=== PATIENT | male | born 1960 | race Caucasian/White ===

== ENCOUNTER 2019-04-06 09:39 | Outpatient (CLI) | payer BC, SELFPAY ==
[2019-04-06 12:57] LABS: HCT 40.8 % (40.0-50.0); HGB 13.5 g/dL (13.5-17.5); Mean Corp. HGB Concentration 33.1 g/dL (32.0-36.0); Mean Corpuscular Hemoglobin 28.8 pg (27.0-33.0); Mean Platelet Volume 11.4 fL (8.0-11.0); Platelet Count 211 x1000/uL (130-400); RBC 4.69 m/cumm (4.50-6.00); RBC Distribution Width 15.2 % (11.8-14.1); White Blood Cell Count 8.55 k/cumm (4.4-10.8)
[2019-04-06 13:47] LABS: ALT 35 U/L (12-78); AST 21 U/L (15-37); Alkaline Phosphatase 76 U/L (46-116); Anion Gap 10.4 mmol/L (3-11); BUN 10 mg/dL (7-18); Bilirubin, Total 0.3 mg/dL (0.2-1.0); CO2 26.6 mmol/L (21.0-32.0); CREATININE 0.79 mg/dL (0.70-1.30); Calcium 8.6 mg/dL (8.5-10.1); Chloride 98 mmol/L (98-107); Glucose 101 mg/dL (70-100); Potassium 4.1 mmol/L (3.5-5.1); Sodium 135 mmol/L (136-145); TSH (W/Ref FT4) 1.57 uIU/mL (0.36-3.74); Total Protein 7.1 g/dL (6.4-8.2); Vitamin B12 570 pg/mL (193-986)
[2019-04-06 14:15] LABS: Hemoglobin A1C 6.4 % (4.5-6.2)
== END 2019-04-06 09:59 ==
PROVIDERS: PCP Family Medicine; Visit Provider Family Medicine
DX: G56.00 Carpal tunnel syndrome, unspecified upper limb (principal); G62.9 Polyneuropathy, unspecified
CPT/HCPCS: 36415; 80053; 85027; 82607; 83036; 84443

== ENCOUNTER 2019-06-20 09:19 | Day surgery (SDC) | payer BC, SELFPAY ==
[2019-06-20 09:38] VITALS: BP 146/93; PULSE 51; RESP 16; TEMP 36.1; O2SAT 96
[2019-06-20] MEDS: ceFAZolin 3,000 MG in Normal Saline 100 ML 200 MG IVPB (10:12)
[2019-06-20] MEDS: Lactated Ringers 1,000 ML 80 ML IV (10:14)
--- NOTE | 2019-06-20 10:21 | PDOC.DSDIS_ITS ---
Discharge Plan Disposition Patient Disposition: HOME Condition: Good Discharge Details Reason For Visit: (R) ECTR Attending Provider: Amari Chi Primary Care Provider: Kayleigh Guzman Home Meds and New Rx's Prescriptions: New hydrocodone-acetaminophen 5-325 mg tablet 1 tab PO Q6H PRN (Reason: pain) Qty: 2 RF: 0 Continued methylphenidate HCl 10 mg tablet 10 mg PO TID MDD 3 Qty: 90 RF: 0 metoprolol succinate 100 mg tablet extended release 24 hr 100 mg PO DAILY Qty: 90 RF: 5 cholecalciferol (vitamin D3) 1,000 UNIT capsule 1,000 unit PO occasionally RF: 0 calcium carbonate-vitamin D3 [Caltrate with Vitamin D3] 1 EACH tablet 1 ea PO occasionally RF: 0 multivitamin 1 EACH tablet 1 ea PO occasionally RF: 0 acetaminophen [Tylenol Extra Strength] 500 MG tablet 2 tab PO PRN RF: 0 ibuprofen 800 MG tablet 800 mg PO TID PRN Qty: 90 RF: 0 sertraline 100 mg tablet 200 mg PO DAILY Qty: 180 RF: 4 oxcarbazepine [Trileptal] 600 mg tablet 600 mg PO BID Qty: 180 RF: 6 gabapentin 300 mg capsule 300 mg PO TID Qty: 270 RF: 12 mirtazapine 30 mg tablet 30 mg PO DAILY Qty: 90 RF: 11 amlodipine [Norvasc] 5 mg tablet 5 mg PO DAILY Qty: 90 RF: 12 lisinopril-hydrochlorothiazide 20-25 mg tablet 1 tab PO DAILY Qty: 90 RF: 12 Discharge Instructions Stand Alone Forms: Arti Bae Tunnel Release Referrals: Amari Chi MD [ [facility] STAFF PHYSICIAN] - Activity:: Activity as Tolerated Remove Dressings/Wound Care:: 48 hours Shower/Bathe:: 48 hours Diet:: As Tolerated Discharge Orders Discharge Orders: Discharge Order (Routine); Ordered 06/20/19 Ordered By: Oleg Hewitt DS: Diagnosis Discharge Diagnosis (1) Carpal tunnel syndrome, right: Status: Acute
[2019-06-20] MEDS: Sodium Bicarbonate 50 MEQ/50 ML VIAL (10:22)
[2019-06-20] MEDS: Lidocaine 1% Pres-Free 5 ML VIAL (10:22)
[2019-06-20 11:20] VITALS: BP 126/76; PULSE 57; RESP 18; TEMP 36; O2SAT 96
--- NOTE | 2019-06-20 13:53 | W.PM.OP ---
Date of service: 06/20/19 Time of Service: 10:53 Operative Note Operative Note DATE OF PROCEDURE: 06/20/19 PRE-OP DIAGNOSIS: Right Carpal Tunnel Syndrome POST-OP DIAGNOSIS: other (Right carpal tunnel syndrome and lipoma) PROCEDURE: Right Endoscopic Carpal Tunnel Release SURGEON: Amari Chi ANESTHESIA: FERNIE ESTIMATED BLOOD LOSS: 0 PATHOLOGY: none sent TOURNIQUET TIME: 12 COMPLICATIONS: None Patient was transported to: same day Patient's condition: stable Indications: I have seen Storm in clinic for symptoms of carpal tunnel syndrome. The numbness, tingling, and pain limited function. Clinical exam findings with nerve conduction tests confirmed the diagnosis of carpal tunnel syndrome. Nonoperative measures such as bracing, time, activity modifications had been tried but disability and pain persisted. I discussed carpal tunnel release with the patient. I reviewed the risks of the procedure to include, but not limited to, bleeding, infection, pain, stiffness, incomplete release, damage to nerves or vessels, persistent numbness, recurrence. Despite these risks, the patient elected to proceed. Findings: There was a loosely organized lipoma directly volar to the fascia which tracked into the deep space between flexor bursa and ulnar structures. This was removed with a rongeur and scissors. There was tightened carpal tunnel. This was dilated and released successfully with the endoscopic with increased space within the tunnel. The antebrachial fascia was released proximally freeing the median nerve at the wrist. Procedure Description: Storm was greeted in the preoperative holding area where the correct side was identified and marked. The consent was reviewed with the patient and signed. The history and physical was updated. All questions were answered. Storm was taken back to the operating room. The patient was placed into the supine position on the operating room table with the right arm on an arm board. A nonsterile tourniquet was placed high onto the arm. All bony prominences were well padded. Prophylactic antibiotics in the form of Cefazolin were administered. The right arm was then prepped with Chloraprep and draped in a standard fashion with stockinette and extremity drape. A timeout to confirm correct identity, side and site, procedure, allergies, anesthesia, and medical concerns was performed. The surgical site was marked in the volar wrist creases in line with the radial border of the fourth ray. This area was anesthetized with approximately 6cc of 1% Lidocaine. The limb was then exsanguinated with an Esmarch. The skin was incised with a 15 blade, approximately 1cm. The skin only was cut and the deeper tissue was dissected bluntly with a tenotomy scissor, avoiding passing nerve and venous structures. There was a prominence of fat in this area. It was volar to the deep fascia. It was loosely organized but seemed to track deep in between the ulnar structures and the flexor bursa. This was removed with rongeur and scissors. The fascia was then penetrated and opened bluntly. A two-prong skin hook was placed under this proximal fascial edge. A series of hamate finders were used to identify and dilate the carpal tunnel. Synovial elevator was used to free synovial attachments to the underside of the transverse carpal ligament. My thumb was kept in the palm to victor manuel the distal extent of the carpal tunnel and correctly position the hand. The Microaire endoscope was inserted without difficulty and without resistance. Excellent visualization showed horizontally running fibers of the transverse carpal ligament (TCL). The distal extent of the TCL was visualized and the end of the scope palpated with the thumb. The blade was elevated and withdrawn from distal to proximal. The TCL was split into two flaps. The endoscope was reinserted to confirm complete release and any remnant ligament was incised. The scope was withdrawn and the proximal aspect of the carpal tunnel was grossly inspected and appeared release with the median nerve visible. The antebrachial fascia at the level of the wrist was then freed from the overlying skin and then the underlying median nerve with blunt dissection. This was transected longitudinally for about 3cm proximal to the wrist incision. The wound was then irrigated with easy flow of irrigant distally and proximally. The incision was closed with a single 4-0 Nylon suture. The wound was dressed with Xeroform, Gauze, Kerlix and Guilherme. The tourniquet was deflated with the initial dressing and held with some pressure. Blood flow returned easily to all digits with capillary refill less than 2 seconds. The patient tolerated the procedure well and was returned to the Same Day Surgery area in a stable condition suffering no known complication.
== END 2019-06-20 11:39 | disposition home or self-care (01) ==
PROVIDERS: PCP Family Medicine; Visit Provider Student in an Organized Health Care Education/Training Program
PROC: 01N54ZZ Release Median Nerve, Percutaneous Endoscopic Approach (ICD-10-PCS; CPT 29848; principal; 2019-06-20 09:30)
DX: G56.01 Carpal tunnel syndrome, right upper limb (principal); I10 Essential (primary) hypertension
CPT/HCPCS: 29848; J0690; J2250; J3010; L3650

== ENCOUNTER 2019-06-28 07:54 | Day surgery (SDC) | payer BC, SELFPAY ==
[2019-06-28 08:19] VITALS: BP 125/72; PULSE 55; RESP 14; TEMP 36.7; O2SAT 97
[2019-06-28] MEDS: Lactated Ringers 1,000 ML 80 ML IV (08:40)
[2019-06-28] MEDS: ceFAZolin 3,000 MG in Normal Saline 100 ML 200 MG IVPB (09:46)
--- NOTE | 2019-06-28 09:56 | W.PM.DSUDISC ---
Documented by User: Mecca Rogel 06/28/19 10:00 Discharge Plan Disposition Patient Disposition: HOME Condition: Good Discharge Details Reason For Visit: Left carpal tunnel syndrome; left trigger thumb Attending Provider: Amari Chi Primary Care Provider: Kayleigh Guzman Home Meds and New Rx's Prescriptions: New acetaminophen 500 mg tablet 500 mg PO Q6H PRN (Reason: pain) Qty: 60 RF: 2 ibuprofen 600 mg tablet 600 mg PO TID PRN (Reason: pain) Qty: 60 RF: 2 Continued methylphenidate HCl 10 mg tablet 10 mg PO TID MDD 3 Qty: 90 RF: 0 metoprolol succinate 100 mg tablet extended release 24 hr 100 mg PO DAILY Qty: 90 RF: 5 cholecalciferol (vitamin D3) 1,000 UNIT capsule 1,000 unit PO occasionally RF: 0 calcium carbonate-vitamin D3 [Caltrate with Vitamin D3] 1 EACH tablet 1 ea PO occasionally RF: 0 multivitamin 1 EACH tablet 1 ea PO occasionally RF: 0 acetaminophen [Tylenol Extra Strength] 500 MG tablet 2 tab PO PRN RF: 0 ibuprofen 800 MG tablet 800 mg PO TID PRN Qty: 90 RF: 0 sertraline 100 mg tablet 200 mg PO DAILY Qty: 180 RF: 4 oxcarbazepine [Trileptal] 600 mg tablet 600 mg PO BID Qty: 180 RF: 6 gabapentin 300 mg capsule 300 mg PO TID Qty: 270 RF: 12 mirtazapine 30 mg tablet 30 mg PO DAILY Qty: 90 RF: 11 amlodipine [Norvasc] 5 mg tablet 5 mg PO DAILY Qty: 90 RF: 12 lisinopril-hydrochlorothiazide 20-25 mg tablet 1 tab PO DAILY Qty: 90 RF: 12 Discharge Instructions Stand Alone Forms: [place] C. Tunnel Release, [place] T. Finger Release, Apolonia Hartmann (DSU) Referrals: Amari Chi MD [ [facility] STAFF PHYSICIAN] - Activity:: Elevate Remove Dressings/Wound Care:: 72 hours Shower/Bathe:: 72 hours Diet:: As Tolerated Discharge Orders Discharge Orders: Discharge Order (Routine); Ordered 06/28/19 Ordered By: Mecca Rogel DS: Diagnosis Discharge Diagnosis (1) Carpal tunnel syndrome, left: Status: Acute (2) Trigger thumb of left hand: Status: Acute Documented by User: Amari Chi MD 06/28/19 11:24 Discharge Plan Disposition Patient Disposition: HOME Condition: Good Discharge Details Reason For Visit: Left carpal tunnel syndrome; left trigger thumb Attending Provider: Amari Chi Primary Care Provider: Kayleigh Guzman Home Meds and New Rx's Prescriptions: New acetaminophen 500 mg tablet 500 mg PO Q6H PRN (Reason: pain) Qty: 60 RF: 2 ibuprofen 600 mg tablet 600 mg PO TID PRN (Reason: pain) Qty: 60 RF: 2 Continued methylphenidate HCl 10 mg tablet 10 mg PO TID MDD 3 Qty: 90 RF: 0 metoprolol succinate 100 mg tablet extended release 24 hr 100 mg PO DAILY Qty: 90 RF: 5 cholecalciferol (vitamin D3) 1,000 UNIT capsule 1,000 unit PO occasionally RF: 0 calcium carbonate-vitamin D3 [Caltrate with Vitamin D3] 1 EACH tablet 1 ea PO occasionally RF: 0 multivitamin 1 EACH tablet 1 ea PO occasionally RF: 0 acetaminophen [Tylenol Extra Strength] 500 MG tablet 2 tab PO PRN RF: 0 ibuprofen 800 MG tablet 800 mg PO TID PRN Qty: 90 RF: 0 sertraline 100 mg tablet 200 mg PO DAILY Qty: 180 RF: 4 oxcarbazepine [Trileptal] 600 mg tablet 600 mg PO BID Qty: 180 RF: 6 gabapentin 300 mg capsule 300 mg PO TID Qty: 270 RF: 12 mirtazapine 30 mg tablet 30 mg PO DAILY Qty: 90 RF: 11 amlodipine [Norvasc] 5 mg tablet 5 mg PO DAILY Qty: 90 RF: 12 lisinopril-hydrochlorothiazide 20-25 mg tablet 1 tab PO DAILY Qty: 90 RF: 12 Discharge Instructions Stand Alone Forms: [place] C. Tunnel Release, [place] T. Finger Release, Apolonia Hartmann (DSU) Referrals: Amari Chi MD [ [facility] STAFF PHYSICIAN] - Activity:: Elevate Remove Dressings/Wound Care:: 72 hours Shower/Bathe:: 72 hours Diet:: As Tolerated Discharge Orders Discharge Orders: Discharge Order (Routine); Ordered 06/28/19 Ordered By: Mecca Rogel
[2019-06-28] MEDS: Sodium Bicarbonate 50 MEQ/50 ML VIAL (10:07)
[2019-06-28 10:50] VITALS: BP 131/74; PULSE 55; RESP 18; TEMP 36.1; O2SAT 100
--- NOTE | 2019-06-28 17:39 | ROE_ITS ---
Date of service: 06/28/19 Time of Service: 11:39 Operative Note Operative Note DATE OF PROCEDURE: 06/28/19 PRE-OP DIAGNOSIS: Left Carpal Tunnel Syndrome and Left Trigger Thumb POST-OP DIAGNOSIS: same PROCEDURE: Left Endoscopic Carpal Tunnel Release and Left Trigger Thumb (A1 Lena) Release SURGEON: Amari Chi ANESTHESIA: GETJacoby ESTIMATED BLOOD LOSS: 0 PATHOLOGY: none sent TOURNIQUET TIME: 13 COMPLICATIONS: None Patient was transported to: same day Patient's condition: stable Indications: I have seen Storm in clinic for symptoms of carpal tunnel syndrome and a trigger thumb. The numbness, tingling, and pain limited function. Clinical exam findings [with nerve conduction tests ]confirmed the diagnosis of carpal tunnel syndrome. Exam also indicated a significant trigger thumb. Nonoperative measures such as bracing, time, activity modifications had been tried but disability and pain persisted. I discussed carpal tunnel release with the patient. I reviewed the risks of the procedure to include, but not limited to, bleeding, infection, pain, stiffness, incomplete release, damage to nerves or vessels, persistent numbness, recurrence. Despite these risks, the patient elected to proceed. Findings: There was tightened carpal tunnel. This was dilated and released successfully with the endoscopic with increased space within the tunnel. The antebrachial fascia was released proximally freeing the median nerve at the wrist. Procedure Description: Storm was greeted in the preoperative holding area where the correct side was identified and marked. The consent was reviewed with the patient and signed. The history and physical was updated. All questions were answered. Storm was taken back to the operating room. The patient was placed into the supine position on the operating room table with the left arm on an arm board. A nonsterile tourniquet was placed high onto the arm. All bony prominences were well padded. Prophylactic antibiotics in the form of Cefazolin were administered. The left arm was then prepped with Chloraprep and draped in a standard fashion with stockinette and extremity drape. A timeout to confirm correct identity, side and site, procedure, allergies, anesthesia, and medical concerns was performed. The surgical site was marked in the volar wrist creases in line with the radial border of the fourth ray. This area was anesthetized with approximately 6cc of 1% Lidocaine with Epinephrine buffered with Sodium Bicarbonate. The limb was then exsanguinated with an Esmarch. The skin was incised with a 15 blade, approximately 1cm. The skin only was cut and the deeper tissue was dissected b luntly with a tenotomy scissor, avoiding passing nerve and venous structures. The fascia was penetrated and opened bluntly. A two-prong skin hook was placed under this proximal fascial edge. A series of hamate finders were used to identify and dilate the carpal tunnel. Synovial elevator was used to free synovial attachments to the underside of the transverse carpal ligament. My thumb was kept in the palm to victor manuel the distal extent of the carpal tunnel and correctly position the hand. The Microaire endoscope was inserted without difficulty and without resistance. Excellent visualization showed horizontally running fibers of the transverse carpal ligament (TCL). The distal extent of the TCL was visualized and the end of the scope palpated with the thumb. The blade was elevated and withdrawn from distal to proximal. The TCL was split into two flaps. The endoscope was reinserted to confirm complete release and any remnant ligament was incised. The scope was withdrawn and the proximal aspect of the carpal tunnel was grossly inspected and appeared release with the median nerve visible. The antebrachial fascia at the level of the wrist was then freed from the overl ran skin and then the underlying median nerve with blunt dissection. This was transected longitudinally for about 3cm proximal to the wrist incision. The wound was then irrigated with easy flow of irrigant distally and proximally. The incision was closed with a single 4-0 Nylon suture. The surgical site was marked as a longitudinal incision directly over the A1 lena of the thumb. This was confirmed with palpation during finger flexion. This area, overlying the metacarpal head, was then anesthetized with 1% Lidocaine with Epinephrine buffered with Sodium Bicarbonate. The patient anna erated this well and once the anesthetic had setup, the procedure began. A longitudinal incision was made through skin only, approximately 1cm. The deep tissues were dissected bluntly. Once the A1 lena and flexor tendons were identified the soft tissue including neurovascular structures were retracted medially and laterally. There were no crossing structures over the A1 lena. The proximal edge of the lena was identified and the lena was incised with tenotomy scissors. There was a release of the tendons once this was fully released. The tendons were then removed from the wound and inspected. Excess synovium was resected. The tendons were then returned and the patient was asked to move the finger into deep flexion and back to extension. There was no recreation of the pre-operative symptoms. The hand was then once more inspected for any A0 lena or area of possible constriction. The wound was then irrigated and the skin was closed with a 4-0 Nylon. The wound was dressed with Xeroform, Gauze, Kerlix and Guilherme. The tourniquet was deflated with the initial dressing and held with some pressure. Blood flow returned easily to all digits with capillary refill less than 2 seconds. The patient tolerated the procedure well and was returned to the Same Day Surgery area in a stable condition suffering no known complication.
== END 2019-06-28 11:48 | disposition home or self-care (01) ==
PROVIDERS: PCP Family Medicine; Visit Provider Student in an Organized Health Care Education/Training Program
PROC: 01N54ZZ Release Median Nerve, Percutaneous Endoscopic Approach (ICD-10-PCS; CPT 29848; principal; 2019-06-28 10:00)
PROC: (CPT 26055; 2019-06-28 10:00)
DX: G56.02 Carpal tunnel syndrome, left upper limb (principal); M65.312 Trigger thumb, left thumb
CPT/HCPCS: 29848; 26055; J0690; J2250; L3670

== ENCOUNTER 2019-10-23 15:31 | Outpatient (CLI) | payer BC, SELFPAY ==
[2019-10-23 16:44] LABS: COMMENT (LAB VIEW ONLY) 68.39 mg/dL; Microalb ug/mg Crea 6.9 ug/mg Cr
[2019-10-23 16:48] LABS: ALT 31 U/L (16-63); AST 17 U/L (15-37); Albumin 3.8 g/dL (3.4-5.0); Alkaline Phosphatase 76 U/L (46-116); Anion Gap 10.2 mmol/L (3-11); BUN 15 mg/dL (7-18); Bilirubin, Total 0.3 mg/dL (0.2-1.0); CO2 29.8 mmol/L (21.0-32.0); Calcium 8.7 mg/dL (8.5-10.1); Calculated LDL 106 mg/dL (<100); Chloride 97 mmol/L (98-107); Cholesterol 188 mg/dL (<200); Glucose 134 mg/dL (74-106); HDL Cholesterol 36 mg/dL (40-60); Potassium 3.2 mmol/L (3.5-5.1); Sodium 137 mmol/L (136-145); Total Protein 6.8 g/dL (6.4-8.2); Triglyceride 232 mg/dL (<150)
[2019-10-23 16:50] LABS: Hemoglobin A1C 6.3 % (3.8-5.6)
[2019-10-23 17:09] LABS: Vitamin D 25 Total 17.5 ng/ml (30-100)
[2019-10-24 17:12] LABS: PSA, Screening 0.4 ng/mL (0.0-3.5)
== END 2019-10-23 15:51 ==
PROVIDERS: PCP Family Medicine; Visit Provider Family Medicine
DX: Z00.00 Encounter for general adult medical examination without abnormal findings (principal); E11.9 Type 2 diabetes mellitus without complications; E55.9 Vitamin D deficiency, unspecified; Z12.5 Encounter for screening for malignant neoplasm of prostate
CPT/HCPCS: 36415; 80053; 80061; 82306; 84153; 82043; 82570; 83036

== ENCOUNTER 2020-03-15 09:04 | Outpatient (CLI) | payer BC, SELFPAY ==
[2020-03-17 14:39] LABS: COVID-19 RT-PCR Result NEGATIVE (Negative)
== END 2020-03-15 09:24 ==
PROVIDERS: PCP Family Medicine; Visit Provider Family Medicine
DX: Z11.59 Encounter for screening for other viral diseases (principal)
CPT/HCPCS: U0003

== ENCOUNTER 2020-07-23 04:08 | Outpatient (CLI) | payer BC, SELFPAY ==
[2020-07-23 14:23] LABS: Hemoglobin A1C 6.1 % (<5.7)
[2020-07-23 14:55] LABS: COMMENT (LAB VIEW ONLY) 148.34 mg/dL; Microalb ug/mg Crea 12.6 ug/mg Cr
[2020-07-23 14:56] LABS: ALT 26 U/L (16-63); AST 14 U/L (15-37); Albumin 4.1 g/dL (3.4-5.0); Alkaline Phosphatase 83 U/L (46-116); Anion Gap 6.6 mmol/L (3-11); BUN 10 mg/dL (7-18); Bilirubin, Total 0.4 mg/dL (0.2-1.0); CO2 31.4 mmol/L (21.0-32.0); CREATININE 1.03 mg/dL (0.70-1.30); Calcium 8.7 mg/dL (8.5-10.1); Calculated LDL 107 mg/dL (<100); Chloride 99 mmol/L (98-107); Cholesterol 180 mg/dL (<200); Glucose 122 mg/dL (74-106); HDL Cholesterol 34 mg/dL (40-60); Potassium 3.3 mmol/L (3.5-5.1); Sodium 137 mmol/L (136-145); Total Protein 7.3 g/dL (6.4-8.2); Triglyceride 196 mg/dL (<150)
[2020-07-23 21:24] LABS: Vitamin D 25 Total 32.6 ng/ml (30-100)
== END 2020-07-23 04:28 ==
PROVIDERS: PCP Family Medicine; Visit Provider Family Medicine
DX: Z00.00 Encounter for general adult medical examination without abnormal findings (principal); E11.9 Type 2 diabetes mellitus without complications
CPT/HCPCS: 36415; 80053; 80061; 82306; 82043; 82570; 83036

== ENCOUNTER 2020-09-03 09:55 | Outpatient (CLI) | payer BC, SELFPAY ==
[2020-09-04 19:30] LABS: COVID-19 RT-PCR UVMMC Result Negative (Negative)
== END 2020-09-03 10:15 ==
PROVIDERS: PCP Family Medicine; Visit Provider Family Medicine
DX: Z20.828 Contact with and (suspected) exposure to other viral communicable diseases (principal)
CPT/HCPCS: U0003

== ENCOUNTER 2020-10-01 21:37 | Outpatient (REF) | payer BC, SELFPAY ==
[2020-10-02 20:36] LABS: COVID-19 RT-PCR UVMMC Result Negative (Negative)
== END 2020-10-01 21:38 | disposition home or self-care (01) ==
LOC: LBN 21:37
PROVIDERS: PCP Family Medicine; Visit Provider Family Medicine
DX: R05 Cough (principal); R50.9 Fever, unspecified
CPT/HCPCS: U0003

== ENCOUNTER 2020-12-12 21:40 | Outpatient (REF) | payer BC, SELFPAY ==
[2020-12-12 14:06] LABS: ALT 27 U/L (16-63); AST 9 U/L (15-37); Albumin 4.2 g/dL (3.4-5.0); Alkaline Phosphatase 98 U/L (46-116); Anion Gap 9.1 mmol/L (3-11); BUN 20 mg/dL (7-18); Bilirubin, Total 0.2 mg/dL (0.2-1.0); CO2 27.9 mmol/L (21.0-32.0); CREATININE 1.1 mg/dL (0.70-1.30); Calcium 8.6 mg/dL (8.5-10.1); Chloride 102 mmol/L (98-107); Glucose 141 mg/dL (74-106); Potassium 3.8 mmol/L (3.5-5.1); Sodium 139 mmol/L (136-145); Total Protein 7.5 g/dL (6.4-8.2)
[2020-12-12 22:38] LABS: PSA, Screening 1.1 ng/mL (0.0-3.5)
[2020-12-13 09:52] LABS: Hepatitis C Ab w Rflx HCV PCR Negative (Negative)
== END 2020-12-12 21:41 | disposition home or self-care (01) ==
LOC: LBN 21:40
PROVIDERS: PCP Family Medicine; Visit Provider Family Medicine
DX: Z00.00 Encounter for general adult medical examination without abnormal findings (principal); E11.9 Type 2 diabetes mellitus without complications; K76.0 Fatty (change of) liver, not elsewhere classified; F98.8 Other specified behavioral and emotional disorders with onset usually occurring in childhood and adolescence; Z12.5 Encounter for screening for malignant neoplasm of prostate; Z11.59 Encounter for screening for other viral diseases
CPT/HCPCS: 80053; 84153; 86803; 83036

== ENCOUNTER 2020-12-27 10:47 | Outpatient (CLI) | payer BC, SELFPAY ==
[2020-12-28 11:04] LABS: COVID-19 RT-PCR UVMMC Result Negative (Negative)
== END 2020-12-27 10:48 | disposition home or self-care (01) ==
PROVIDERS: PCP Family Medicine; Visit Provider Family Medicine
DX: Z20.822 Contact with and (suspected) exposure to COVID-19 (principal)
CPT/HCPCS: U0003

== ENCOUNTER 2021-07-22 18:16 | Outpatient (REF) | payer BC, SELFPAY ==
[2021-07-22 21:17] LABS: Hemoglobin A1C 5.8 % (<5.7)
[2021-07-22 21:28] LABS: ALT 26 U/L (16-63); AST 22 U/L (15-37); Albumin 3.8 g/dL (3.4-5.0); Alkaline Phosphatase 88 U/L (46-116); Anion Gap 8.2 mmol/L (3-11); BUN 15 mg/dL (7-18); Bilirubin, Total 0.2 mg/dL (0.2-1.0); CO2 28.8 mmol/L (21.0-32.0); CREATININE 0.9 mg/dL (0.70-1.30); Calcium 8.6 mg/dL (8.5-10.1); Chloride 100 mmol/L (98-107); Glucose 95 mg/dL (74-106); Potassium 3.7 mmol/L (3.5-5.1); Sodium 137 mmol/L (136-145); TSH (W/Ref FT4) 1.81 uIU/mL (0.36-3.74); Total Protein 7.1 g/dL (6.4-8.2)
[2021-07-24 01:57] LABS: Vitamin D 25 Total 26.3 ng/mL (30-100)
== END 2021-07-22 18:17 | disposition home or self-care (01) ==
LOC: LBN 18:16
PROVIDERS: PCP Family Medicine; Visit Provider Family Medicine
DX: E11.9 Type 2 diabetes mellitus without complications; I10 Essential (primary) hypertension; R73.03 Prediabetes; E55.9 Vitamin D deficiency, unspecified; R35.0 Frequency of micturition
CPT/HCPCS: 80053; 82306; 83036; 84443

== ENCOUNTER 2022-04-28 03:33 | Outpatient (CLI) | payer OTHER, SELFPAY ==
[2022-04-28 12:57] LABS: Hemoglobin A1C 6.4 % (<5.7)
[2022-04-28 12:59] LABS: ALT 37 U/L (16-63); AST 25 U/L (15-37); Albumin 3.8 g/dL (3.4-5.0); Alkaline Phosphatase 66 U/L (46-116); Anion Gap 9.9 mmol/L (3-11); BUN 20 mg/dL (7-18); Bilirubin, Total 0.3 mg/dL (0.2-1.0); CO2 28.1 mmol/L (21.0-32.0); Calcium 8.7 mg/dL (8.5-10.1); Calculated LDL 126 mg/dL (<100); Chloride 100 mmol/L (98-107); Cholesterol 184 mg/dL (<200); Estimated GFR 86.16 (mL/min/1.73m2); Glucose 129 mg/dL (74-106); HDL Cholesterol 35 mg/dL (40-60); Sodium 138 mmol/L (136-145); Total Protein 7.7 g/dL (6.4-8.2); Triglyceride 116 mg/dL (<150)
[2022-04-30 04:49] LABS: Vitamin D 25 Total 31.8 ng/mL (30-100)
== END 2022-04-28 03:34 | disposition home or self-care (01) ==
LOC: LOS 03:33
PROVIDERS: PCP Family Medicine; Visit Provider Family Medicine
DX: E55.9 Vitamin D deficiency, unspecified (principal); Z00.00 Encounter for general adult medical examination without abnormal findings; E11.9 Type 2 diabetes mellitus without complications
CPT/HCPCS: 36415; 80053; 80061; 82306; 83036

== ENCOUNTER → 2022-07-21 13:26 | Outpatient (CLI) | payer OTHER, SELFPAY ==
--- OUTSIDE RECORDS SUMMARY | 2022-07-21 13:35 | XMS_ITS | Encounter Summary ---
:1960 Author Organization [facility] Address [address] [place] [address] Care Team Providers Name Role Phone Unknown, Provider Primary Care Provider Encounter Details Date Type Department Care Team Description 10/02/2020 Lab Requisition [facility] Outr Resulting Lab, Pathology & Laboratory Provider General acute hospital [address], [place] [id number] Social History Tobacco Use Types Packs/Day Years Used Date Smoking Tobacco: Never Assessed Sex Assigned at Date Recorded Not on file documented as of this encounter Plan of Treatment Not on filedocumented as of this encounter Procedures Procedure Name Priority Date/Time Associated Diagnosis Comme nts COVID-19 TEST [facility] Today 10/01/2020 13:30 LAB PCR EST COVID-19 TESTING Routine 10/01/2020 13:30 Results for this EST procedure are i n the results section. documented in this encounter Results COVID-19 TEST [facility] PCR (10/01/2020 13:30 EST) Specimen Anatomical Location Collection Method Collection Time Received Time (Source) / Laterality / Volume Swab ENTIRE NASOPHARYNX 10/01/2020 13:30 10/02 / Unknown EST 15:49 EST Provider Outr Resulting Lab MICROBIOLOGY - GENERAL ORD ERABLES Performing Organization Address City/State/ZIP Code Phon e Number [facility] [address] [place] [address] SERVICES COVID-19 TESTING (10/01/2020 13:30 EST) Analysis Performed At [facility] Time Signature COVID-19 Negative Negative 10/02/2020 [facility] MED[facility] rt-PCR Result 20:31 EST [facility] Comment: This test has not been FDA cleared or ap proved. This test has been authorized by FDA under an EUA for use by authorized laboratories. This test has been authorized only for detection of nucleic acid fro m 2019-nCoV, not for any other viruses o r pathogens. This test is only authorized for the duration of the declaration that circumstances exist justifying the authorization of emergency use of in vitro d iagnostic tests for detection and/or sergio gnosis of 2019-nCoV under section 564(b)(1) of Act, 21 U.S.C ?? 360bbb-3(b) (1), unless the authorization is terminated or revoked sooner. Negative results do not preclude 2019-nC oV infection and should not be used as the sole basis for treatment or other patient management decisions. Negative results must be combined with clinical observa tions, patient history, and epidemiologi lillie information. Performed on the [employer] Fusion instrument Performing Lab [place] [facility] Lab 10/02/2020 20:31 EST [facility] SERVICES Specimen Anatomical Collection Method Collection Time Receive d Time (Source) Location / / Volume Laterality Swab 10/01/2020 13:30 10/02/2020 EST 15:49 EST Provider Outr Resulting Lab MICROBIOLOGY - GENERAL ORD ERABLES Performing Organization Address City/State/ZIP Code Phon e Number [facility] [address] [place] [address] SERVICES documented in this encounter Visit Diagnoses Not on filedocumented in this encounter Care Teams Disability Case Manager Relationship Specialty Start Date End Date Unknown, Provider, PCP - General 10/07/12 documented as of this encounter
--- OUTSIDE RECORDS SUMMARY | 2022-07-21 13:35 | XMS_ITS | Encounter Summary ---
:1960 Author Organization [facility] Address [address] [place] [address] Care Team Providers Name Role Phone Unknown, Provider Primary Care Provider Encounter Details Date Type Department Care Team Description 03/15/2020 Lab Requisition [facility] Outr Resulting Lab, Pathology & Laboratory Provider [facility] [address] [place] [address] Social History Tobacco Use Types Packs/Day Years Used Date Smoking Tobacco: Never Assessed Sex Assigned at Date Recorded Not on file documented as of this encounter Plan of Treatment Not on filedocumented as of this encounter Procedures Procedure Name Priority Date/Time Associated Comments Diagnosis DO NOT ORDER Today 03/15/2020 13:26 Results for this STANDALONE - BROAD EDT procedure are in COVID TEST the results section. COVID-19 TESTING Routine 03/15/2020 13:26 Results for this EDT procedure are i n the results section. documented in this encounter Results DO NOT ORDER STANDALONE - BROAD COVID TEST (03/15/2020 13:26 EDT) [facility]-19 NEGATIVE Negative 03/17/2020 [facility] rt-PCR Result 13:09 EDT [facility] Comment: 2019-novel Coronavirus (2019-nCoV) not d etected by the qRT-PCR assay. Consider testing for other respiratory viruses or re-collecting for 2019-nCoV testing. Note: Optimum timing for peak viral levels du ring infections caused by 2019-nCoV have not been determined. Collection of multiple specimens from the same patient may be necessary to detect the virus. Limitations Positive results are indicative of activ e infection with SARS-CoV-2 but do not rule out bacterial infection or co-infection with other viruses. The agent detected may not be the definite cause of diseas e. In addition, detection of viral RNA m ay not indicate the presence of infectious virus or that SARS-CoV-2 is the causative agent for clinical symptoms. Negative results do not preclude SARS-Co V-2 infection and should not be used as the sole basis for patient management decisions. Negative results must be combined with clinical observations, patient his tory, and epidemiological information. F alse negative results may also occur if amplification inhibitors are present in the specimen or if inadequate numbers of organisms are present in the specimen. Op timum specimen types and timing for peak viral levels during infections caused by SARS-CoV-2 have not been fully determined. Collection of multiple specimens (types and time points) from the same patient may be necessary to detect the virus. The test was validated for use with uppe r respiratory specimens obtained via nasopharyngeal or oropharyngeal swabs in VTM, UTM, M4, M5, M6, saline, and MTM media. The performance of this test has not be en established for other specimens. Spec imens collected using other FDA recommended Specimen Collection Materials listed in the FDA COVID-19 Diagnostic Technologies communication (November 23, 2019) are pr ocessed with the caveat that they were n ot all validated for use with this test and the result must be interpreted in this context. Furthermore, a false negative results may occur if a specimen is improperly collected, transported or handled. If the virus mutates in the RT-PCR targe t region, SARS-CoV-2 may not be detected or may be detected less predictably. Inhibitors or other types of interferenc e may produce a false negative result. An interference study evaluating the effect of common cold medications was not performed. This test is not FDA-cleared but its per formance characteristics were established by our CLIA-certified, CAP-accredited, high complexity laboratory in accordance with CLIA regulations, College of [employer] an Pathologists (CAP) guidelines (Oct), and FDA guidance (Oct 28, 2019). This test is only for use under the Food and Drug Administration's Emergency Use Authorization. Specimen Anatomical Location Collection Method Collection Time Received Time (Source) / Laterality / Volume Swab ENTIRE NASOPHARYNX 03/15/2020 13:26 03/15 / Unknown EDT 20:33 EDT Provider Outr Resulting Lab MICROBIOLOGY - GENERAL ORD ERABLES Performing Organization Address City/State/ZIP Code Phon e Number [facility] [place] [place] COVID-19 TESTING (03/15/2020 13:26 EDT) Analysis Performed At [facility] Time Signature COVID-19 NEGATIVE Negative 03/17/2020 [facility] rt-PCR Result 14:33 EDT [facility] Comment: 2019-novel Coronavirus (2019-nCoV) not d etected by the qRT-PCR assay. Consider testing for other respiratory viruses or re-collecting for 2019-nCoV testing. Note: Optimum timing for peak viral levels du ring infections caused by 2019-nCoV have not been determined. Collection of multiple specimens from the same patient may be necessary to detect the virus. Limitations Positive results are indicative of activ e infection with SARS-CoV-2 but do not rule out bacterial infection or co-infection with other viruses. The agent detected may not be the definite cause of diseas e. In addition, detection of viral RNA m ay not indicate the presence of infectious virus or that SARS-CoV-2 is the causative agent for clinical symptoms. Negative results do not preclude SARS-Co V-2 infection and should not be used as the sole basis for patient management decisions. Negative results must be combined with clinical observations, patient his tory, and epidemiological information. F alse negative results may also occur if amplification inhibitors are present in the specimen or if inadequate numbers of organisms are present in the specimen. Op timum specimen types and timing for peak viral levels during infections caused by SARS-CoV-2 have not been fully determined. Collection of multiple specimens (types and time points) from the same patient may be necessary to detect the virus. The test was validated for use with uppe r respiratory specimens obtained via nasopharyngeal or oropharyngeal swabs in VTM, UTM, M4, M5, M6, saline, and MTM media. The performance of this test has not be en established for other specimens. Spec imens collected using other FDA recommended Specimen Collection Materials listed in the FDA COVID-19 [employer] communication (November 23, 2019) are pr ocessed with the caveat that they were n ot all validated for use with this test and the result must be interpreted in this context. Furthermore, a false negative results may occur if a specimen is improperly collected, transported or handled. If the virus mutates in the RT-PCR targe t region, SARS-CoV-2 may not be detected or may be detected less predictably. Inhibitors or other types of interferenc e may produce a false negative result. An interference study evaluating the effect of common cold medications was not performed. This test is not FDA-cleared but its per formance characteristics were established by our CLIA-certified, CAP-accredited, high complexity laboratory in accordance with CLIA regulations, College of [employer] an Pathologists (CAP) guidelines (Oct), and FDA guidance (Oct 28, 2019). This test is only for use under the Food and Drug Administration's Emergency Use Authorization. Performing Lab [facility] 03/17/2020 14:3 3 EDT [facility] Specimen Anatomical Collection Method Collection Time Receive d Time (Source) Location / / Volume Laterality Swab 03/15/2020 13:26 03/15/2020 EDT 20:33 EDT Provider Outr Resulting Lab MICROBIOLOGY - GENERAL ORD ERABLES Performing Organization Address City/State/ZIP Code Phon e Number [facility] [address] [place] [address] SERVICES [facility] [place], [place] documented in this encounter Visit Diagnoses Not on filedocumented in this encounter Care Teams Med Surg Rn Relationship Specialty Start Date End Date Unknown, Provider, PCP - General 10/07/12 documented as of this encounter
--- OUTSIDE RECORDS SUMMARY | 2022-07-21 13:35 | XMS_ITS | Encounter Summary ---
:1960 Author Organization [facility] Address [address] [place] [address] Care Team Providers Name Role Phone Unknown, Provider MD Primary Care Provider Encounter Details Date Type Department Care Team Description 09/03/2020 Lab Requisition [facility] Outr Resulting Lab, Pathology & Laboratory Provider [facility] [address] [place], [place] [id number] Social History Tobacco Use Types Packs/Day Years Used Date Smoking Tobacco: Never Assessed Sex Assigned at Date Recorded Not on file documented as of this encounter Plan of Treatment Not on filedocumented as of this encounter Procedures Procedure Name Priority Date/Time Associated Diagnosis Comme nts COVID-19 TEST [facility] Today 09/03/2020 9:56 EST LAB PCR COVID-19 TESTING Routine 09/03/2020 9:56 EST Resu lts for this procedure are i n the results section. documented in this encounter Results COVID-19 TEST [facility] PCR (09/03/2020 9:56 EST) Specimen Anatomical Location Collection Method Collection Time Received Time (Source) / Laterality / Volume Swab ENTIRE NASOPHARYNX 09/03/2020 9:56 2020 / Unknown EST 16:01 EST Provider Outr Resulting Lab MICROBIOLOGY - GENERAL ORD ERABLES Performing Organization Address City/State/ZIP Code Phon e Number [facility] [address] [place] [address] SERVICES COVID-19 TESTING (09/03/2020 9:56 EST) Analysis Performed At [facility] Time Signature COVID-19 Negative Negative 09/04/2020 [facility] rt-PCR Result 19:22 EST [facility] Comment: Negative results do not preclude 2019-MD oV infection and should not be used as the sole basis for treatment or other patient management decisions. Negative results must be combined with clinical observa tions, patient history, and epidemiologi lillie information. This test was developed and its performa nce characteristics determined by [facility]. It has not been cleared or approved by the US Food and Drug Administration. FDA does not require this test to go through premarket FDA review. This test is used for clinical purposes. It should not be regarded as investigational or for research. This laboratory is certified under the Clinical Laboratory Improvement Amendm ents (CLIA) as qualified to perform high complexity clinical laboratory testing. This test is based on the [facility] COVID-19 E mergency Use Authorization (EUA) assay, with minor modification as defined by the FDA Performed on the [employer] 7 Flex. Performing Lab [facility] 09/04/2020 19:22 EST [facility] SERVICES Specimen Anatomical Collection Method Collection Time Receive d Time (Source) Location / / Volume Laterality Swab 09/03/2020 9:56 09/03/2020 EST 16:01 EST Provider Outr Resulting Lab MICROBIOLOGY - GENERAL ORD ERABLES Performing Organization Address City/State/ZIP Code Phon e Number [facility] [address] [place] [address] SERVICES documented in this encounter Visit Diagnoses Not on filedocumented in this encounter Care Teams Aircraft Skin Burnisher Relationship Specialty Start Date End Date Unknown, Provider, PCP - General 10/07/12 documented as of this encounter
--- OUTSIDE RECORDS SUMMARY | 2022-07-21 13:35 | XMS_ITS | Encounter Summary ---
:1960 Author Organization [facility] Address [address] [place] [address] Care Team Providers Name Role Phone Unknown, Provider MD Primary Care Provider Encounter Details Date Type Department Care Team Description 10/23/2019 Lab Requisition [facility] Unknown, Provider, Pathology & Laboratory [facility] [address] [place] [address] [place], [place] [id number] Social History Tobacco Use Types Packs/Day Years Used Date Smoking Tobacco: Never Assessed Sex Assigned at Date Recorded Not on file documented as of this encounter Plan of Treatment Not on filedocumented as of this encounter Procedures Procedure Name Priority Date/Time Associated Comments Diagnosis PSA TOTAL, Today 10/23/2019 15:59 Results for this DIAGNOSTIC EST procedure are i n the results section. documented in this encounter Results PSA TOTAL, DIAGNOSTIC (10/23/2019 15:59 EST) P athologist Signature PSA 0.4 0.0 - 3.5 10/24/2019 [facility] ng/mL 10:01 EST [facility] Specimen Anatomical Collection Method Collection Time Receive d Time (Source) Location / / Volume Laterality Blood VENOUS BLOOD / 10/23/2019 15:59 0 Unknown EST 21:05 EST Narrative [facility] - 10/24/2019 10:01 EST NOTE: Serum PSA concentration should not be in terpreted as absolute evidence for the presence or absence of malignant disease. Assayed on Siemens [employer]IA Centaur XPT usi ng chemiluminescent technology.??Values obtained by using different assay methods cannot be used interchangeably. Provider Unknown CHEMISTRY & BLOOD GAS ORDERA BLES Performing Organization Address City/State/ZIP Code Phon e Number [facility] [address] [place] [id number] SERVICES documented in this encounter Visit Diagnoses Not on filedocumented in this encounter Care Teams Floorwalker Relationship Specialty Start Date End Date Unknown, Provider, PCP - General 10/07/12 documented as of this encounter
--- OUTSIDE RECORDS SUMMARY | 2022-07-21 13:35 | XMS_ITS | Clinical Summary ---
:1960 Author Organization [facility] Address [address] [place] [address] Care Team Providers Name Role Phone Unknown, Provider Primary Care Provider Social History Tobacco Use Types Packs/Day Years Used Date Smoking Tobacco: Never Assessed Sex Assigned at Date Recorded Not on file Plan of Treatment Health Maintenance Due Date Last Done Comments COVID-19 Vaccine (#1) 01/30/1961 Hepatitis C Screen Completed 12/12/2020 Care Teams Primary Teaching Assistant Relationship Specialty Start Date End Date Unknown, Provider, PCP - General 10/07/12
--- OUTSIDE RECORDS SUMMARY | 2022-07-21 13:35 | XMS_ITS | Encounter Summary ---
:1960 Author Organization [facility] Address [address] [place] [address] Care Team Providers Name Role Phone Unknown, Provider Primary Care Provider Encounter Details Date Type Department Care Team Description 12/27/2020 Lab Requisition [facility] Outr Resulting Lab, Pathology & Laboratory Provider [facility] [address] [place], [place] [id number] Social History Tobacco Use Types Packs/Day Years Used Date Smoking Tobacco: Never Assessed Sex Assigned at Date Recorded Not on file documented as of this encounter Plan of Treatment Not on filedocumented as of this encounter Procedures Procedure Name Priority Date/Time Associated Diagnosis Comme nts COVID-19 TEST [facility] Today 12/27/2020 11:01 LAB PCR EDT COVID-19 TESTING Routine 12/27/2020 11:01 Results for this EDT procedure are i n the results section. documented in this encounter Results COVID-19 TEST [facility] LAB PCR (12/27/2020 11:01 EDT) Specimen Anatomical Location Collection Method Collection Time Received Time (Source) / Laterality / Volume Swab ENTIRE NASOPHARYNX 12/27/2020 11:01 12/27 / Unknown EDT 15:43 EDT Provider Outr Resulting Lab MICROBIOLOGY - GENERAL ORD ERABLES Performing Organization Address City/State/ZIP Code Phon e Number [facility] [address] [place] [address] SERVICES COVID-19 TESTING (12/27/2020 11:01 EDT) Analysis Performed At Path logist Time Signature COVID-19 Negative Negative 12/28/2020 [facility] rt-PCR Result 10:59 EDT [facility] Comment: This test has [...] tions, patient history, and epidemiologi lillie information. Testing was performed using the eleanor SA RS-CoV-2 assay ([employer] on the Eleanor 6800 System Performing Lab Eleanor [address] [facility] 12/28/2020 10:59 E DT [facility] Specimen Anatomical Collection Method Collection Time Receive d Time (Source) Location / / Volume Laterality Swab 12/27/2020 11:01 12/27/2020 EDT 15:43 EDT Provider Outr Resulting Lab MICROBIOLOGY - GENERAL ORD ERABLES Performing Organization Address City/State/ZIP Code Phon e Number [facility] [address] [place] [address] SERVICES documented in this encounter Visit Diagnoses Not on filedocumented in this encounter Care Teams Buyer Agent Relationship Specialty Start Date End Date Unknown, Provider, PCP - General 10/07/12 documented as of this encounter
--- OUTSIDE RECORDS SUMMARY | 2022-07-21 13:35 | XMS_ITS | Encounter Summary ---
:1960 Author Organization [facility] Address [address] [place] [address] Care Team Providers Name Role Phone Unknown, Provider Primary Care Provider Encounter Details Date Type Department Care Team Description 12/12/2020 Lab Requisition [facility] Outr Resulting Lab, Pathology & Laboratory Provider [facility] [address] [place] [address] Social History Tobacco Use Types Packs/Day Years Used Date Smoking Tobacco: Never Assessed Sex Assigned at Date Recorded Not on file documented as of this encounter Plan of Treatment Not on filedocumented as of this encounter Procedures Procedure Name Priority Date/Time Associated Comments Diagnosis HEPATITIS C AB W Routine 12/12/2020 10:39 Results for this REFLEX TO HCV RNA BY EDT procedu re are in PCR the results section. PSA TOTAL, Routine 12/12/2020 10:39 Results for this DIAGNOSTIC EDT procedure are i n the results section. documented in this encounter Results PSA TOTAL, DIAGNOSTIC (12/12/2020 10:39 EDT) P athologist Signature PSA 1.1 0.0 - 3.5 12/12/2020 [facility] ng/mL 22:33 EDT [facility] Specimen Anatomical Collection Method Collection Time Receive d Time (Source) Location / / Volume Laterality Blood VENOUS BLOOD / 12/12/2020 10:39 Unknown EDT 21:19 EDT Narrative [facility] SERVICES - 12/12/2020 22:33 EDT NOTE: Serum PSA concentration should not be in terpreted as absolute evidence for the presence or absence of malignant disease. Assayed on Siemens ADVIA Evolitaaur XPT usi ng chemiluminescent technology.??Values obtained by using different assay methods cannot be used interchangeably. Provider Outr Resulting Lab CHEMISTRY & BLOOD GAS [place] Performing Organization Address City/State/ZIP Code Phon e Number [facility] [address] [place] [address] SERVICES HEPATITIS C AB W REFLEX TO HCV RNA BY PCR (12/12/2020 10:39 EDT) Analysis Performed At Patho logist Time Signature Hep C Antibody Negative Negative 12/13/2020 [facility] 9:47 EDT [facility] SERVICES Specimen Anatomical Collection Method Collection Time Receive d Time (Source) Location / / Volume Laterality Blood VENOUS BLOOD / 12/12/2020 10:39 1 Unknown EDT 21:19 EDT Provider Outr Resulting Lab CHEMISTRY & BLOOD GAS [place] Performing Organization Address City/State/ZIP Code Phon e Number [facility] [address] [place] [address] SERVICES documented in this encounter Visit Diagnoses Not on filedocumented in this encounter Care Teams Neon Sign Mechanic Relationship Specialty Start Date End Date Unknown, Provider, PCP - General 10/07/12 documented as of this encounter
--- OUTSIDE RECORDS SUMMARY | 2022-07-21 13:35 | XMS_ITS | Encounter Summary ---
:1960 Author Organization [facility] Address [address] [place] [address] Care Team Providers Name Role Phone Unknown, Provider Primary Care Provider Encounter Details Date Type Department Care Team Description 10/07/2012 Results Only [facility]- Malu Cassidy, DO [phone] [place] [address] [place] [address] (Wo rk) Social History Tobacco Use Types Packs/Day Years Used Date Smoking Tobacco: Never Assessed Sex Assigned at Date Recorded Not on file documented as of this encounter Plan of Treatment Not on filedocumented as of this encounter Procedures Procedure Name Priority Date/Time Associated Diagnosis Comme [facility] SURGICAL PATHOLOGY Routine 10/07/2012 22:34 Resul ts for this EST procedure are i n the results section. documented in this encounter Results SURGICAL PATHOLOGY (10/07/2012 22:34 EST) Component Value Ref Test Analysis Performed At [facility] Method Time Signature Pathology SURGICAL PATHOLOGY REPORT ANALY ALBERTS Report: Reports generated via electronic interface contain nicolás mirza data; LEILA RODRIGUEZ however they are lacking the format of the original report. Caution should be taken when reading/interpreting unformatte d reports. Name: ? STORM RODRIGUEZ ? Accession #: ? [id number] ? : ? 1960 (Age: 52) ??M ? Collect Date: ? 10/07/2012 ? Location: ? [facility] ? Receive Date: ? 10/07/2012 ? Provider: MALU OLIVARES DO Copy to: TIFFANIE RUSSELL MD ? Final Pathologic Diagnosis: ? Rectum, polyp, biopsy: - Hyperplastic polyp. ?? Document reviewed and electronically signed by: ALLIE RIOS MD Report ??Date: 10/11/2012 11:32 By the signature above, the attending physician certifies th at he/she has personally conducted a gross and/or microscopic examin ation of the described specimens and rendered or confirmed the above diagnosis. Specimen(s) Received: ? Rectal polyp Clinical History: ? Screening, diverticulosis Gross Description: ? Received in formalin labelled Storm Rodriguez and rectal polyp is a bruce-pink 0.3 x 0.3 x 0.2 cm soft tissue fragment. ??Th e specimen is entirely submitted in one cassette as (1). (Angélica Weeks)/mpl End of Report Specimen Anatomical Collection Method Collection Time Receive d Time (Source) Location / / Volume Laterality 10/07/2012 22:34 10/07/2012 EST 22:34 EST Malu Olivares DO PATHOLOGY ORDERABLES Performing Organization Address City/State/ZIP Code Phon e Number [facility] [address] [place] [address] SERVICES [facility] [address] [place] [address] documented in this encounter Visit Diagnoses Not on filedocumented in this encounter Care Teams Bench Machine Operator Relationship Specialty Start Date End Date Unknown, Provider, PCP - General 10/07/12 documented as of this encounter
[2022-07-21 14:02] LABS: Abs Immature Grans 0.05 10^3/uL (0.0-0.06); Absolute Basophil Count 0.08 10^3/uL (0.0-0.2); Absolute Lymphocyte Count 3.46 10^3/uL (1.2-3.4); Absolute Monocyte Count 1.09 10^3/uL (0.1-0.8); Absolute Neutrophil Count 8.26 10^3/uL (1.2-6.7); Basophils % 0.6; Eosinophils % 1.7; HCT 37.9 % (40.0-50.0); HGB 12.7 g/dL (13.5-17.5); Immature Grans % 0.4; Lymphocytes % 26.3; MCH 28.8 pg (27.0-33.0); MCHC 33.5 % (32.0-36.0); MCV 86 fL (80-95); MPV 10.1 fL (8.0-11.0); Monocytes % 8.3; Neutrophils % 62.7; Platelet Count 244 10^3/uL (130-400); RBC 4.41 10^6/uL (4.36-5.78); RDW 14.1 % (11.8-14.1); RDW-SD 44.1 fL; WBC 13.17 10^3/uL (4.4-10.8)
[2022-07-21 14:07] LABS: Absolute Eosinophil Count 0.22 10^3/uL (0.0-0.7)
[2022-07-21 14:18] LABS: ALT 32 U/L (16-63); AST 17 U/L (15-37); Albumin 3.8 g/dL (3.4-5.0); Alkaline Phosphatase 75 U/L (46-116); Anion Gap 7.7 mmol/L (3-11); BUN 18 mg/dL (7-18); Bilirubin, Total 0.6 mg/dL (0.2-1.0); CO2 28.3 mmol/L (21.0-32.0); Calcium 8.7 mg/dL (8.5-10.1); Chloride 94 mmol/L (98-107); Estimated GFR 86.16 (mL/min/1.73m2); Glucose 104 mg/dL (74-106); Lipase 30 U/L (73-393); Potassium 3.6 mmol/L (3.5-5.1); Sodium 130 mmol/L (136-145); Total Protein 7.7 g/dL (6.4-8.2)
--- NOTE | 2022-07-21 15:59 | DI.CT_ITS ---
Exam(s) CT ABDOMEN PELVIS W EXAM: CT ABDOMEN PELVIS W CLINICAL HISTORY: UNSPECIFIED ABD PAIN, R10.9; evaluate for pathology ?diverticulitis TECHNIQUE: Imaging Protocol: Axial computed tomography images with coronal and sagittal reformatted images were created and reviewed CONTRAST MATERIAL: Intravenous: Omnipaque 350 Contrast volume:98 mL Oral: Yes COMPARISON: None. FINDINGS: ABDOMEN: Lung Bases: Normal where visualized. Liver: There is decreased attenuation of the liver suggesting fatty infiltration. No measurable mass. Portal, Superior Mesenteric, and Splenic Veins: Unremarkable. Gallbladder and Biliary Tract: No radiodense calculus or dilation. Pancreas: Normal density, no abnormal calcifications or inflammatory process. Spleen: Normal. Adrenals: There is a 2.9 x 3.1 cm hypodense left adrenal mass. The right adrenal gland is unremarkabl e. Kidneys: Normal size, contour and axis. There is a 4 mm nonobstructing stone in the lower pole of the left kidney. There is no hydronephrosis. There is a simple 1.3 cm cyst in the lower pole of the righ t kidney. No follow-up is recommended. Abdominal Aorta: Abdominal portion non-dilated. Atherosclerosis is present. Bowel: There is diverticulosis seen in the sigmoid colon. There is bowel wall thickening seen in the proximal sigmoid colon with surrounding inflammatory changes consistent with acute diverticulitis. No abscess or free air is seen. There is no evidence of bowel obstruction. Appendix is unremarkable. Peritoneal Cavity: No ascites, collection or mesenteric inflammatory response. No free air. Lymph Nodes: Within normal limits. Bones: Within normal limits for the patient's age. Soft Tissues: There is a fat containing left inguinal hernia. PELVIS: Bladder: Symmetric distention, no gross wall thickening. Reproductive Organs: Unremarkable as visualized. Lymph Nodes: Within normal limits. Bones: Within normal limits for the patient's age. IMPRESSION: 1. Findings consistent with sigmoid diverticulitis. No abscess or free air. A repeat CT examination f ollowing treatment is recommended to exclude underlying bowel process. 2. 3.1 x 2.9 cm left hypodense adrenal mass. This may represent an adrenal adenoma. However, an MRI w ithout and with contrast is recommended for confirmation/further evaluation. This is an unexpected fi nding. Unexpected findings RADIATION DOSE DELIVERED: Total DLP DATA REPOSITORY: All CT scans at this facility are submitted to the National Radiology Data Registry (NRDR) Dose Index Registry (DIR) with the [employer] (ACR). RADIATION OPTIMIZATION: All CT scans at this facility use at least one of these dose optimization te chniques: automated exposure control; mA and/or kV adjustment per patient size (includes targeted exa ms where dose is matched to clinical indication); or iterative reconstruction.
[2022-07-21] MEDS: Normal Saline - Diluent 50 ML VIAL IV (16:14)
[2022-07-21] MEDS: Omnipaque 350 MG/ML 100 ML BTL 98 ML IV (16:16)
== END ==
PROVIDERS: PCP Family Medicine; Visit Provider Nurse Practitioner Family
DX: R10.9 Unspecified abdominal pain (principal); K57.32 Diverticulitis of large intestine without perforation or abscess without bleeding
CPT/HCPCS: 80053; 83690; 74177; 85025; J3490

== ENCOUNTER → 2022-08-07 00:57 | Outpatient (CLI) | payer OTHER, SELFPAY ==
--- NOTE | 2022-08-07 07:15 | DI.MRI_ITS ---
Exam(s) MR ABDOMEN WO/W EXAM: MR ABDOMEN WO/W CLINICAL HISTORY: adrenal mass noted on CT,E27.8 TECHNIQUE: Multiplanar multisequence MRI of the Abdomen was performed. CONTRAST MATERIAL: IV Contrast: 20 mL of Dotarem contrast administered. COMPARISON: CT CT ABDOMEN PELVIS W from 07/21/2022 FINDINGS: The examination is limited due to patient motion artifact. Liver: Unremarkable. Pancreas: Unremarkable. Gallbladder and Bile Ducts: Unremarkable. Adrenals: There is a 3.1 x 3.0 cm left adrenal mass. The adrenal mass shows signal dropout on the op posed phase images. There is some enhancement following contrast administration. The finding is mos t suggestive of an adrenal adenoma. No right adrenal mass is seen. Kidneys: There is a 1.3 cm simple cyst in the inferior pole of the right kidney. The kidneys are oth erwise unremarkable. Spleen: Unremarkable. Bowel: There is diverticulosis seen in the colon. No evidence of diverticulitis. Aorta: Unremarkable. Soft Tissues: Unremarkable. Bone: Unremarkable. Lymph Nodes: Unremarkable. IMPRESSION: Findings most suggestive of a left adrenal adenoma. DATA REPOSITORY:
[2022-08-07] MEDS: Normal Saline - Diluent 50 ML VIAL 25 ML IJ (10:01)
[2022-08-07] MEDS: Gadoterate meglumine 20 ML VIAL IVP (10:02)
== END ==
PROVIDERS: PCP Family Medicine; Visit Provider Physician Assistant
DX: E27.8 Other specified disorders of adrenal gland (principal)
CPT/HCPCS: 74183

== ENCOUNTER 2022-09-15 03:38 | Outpatient (CLI) | payer OTHER, SELFPAY ==
[2022-09-15 13:19] LABS: ALT 29 U/L (16-63); AST 18 U/L (15-37); Albumin 3.9 g/dL (3.4-5.0); Alkaline Phosphatase 76 U/L (46-116); Anion Gap 8.5 mmol/L (3-11); BUN 17 mg/dL (7-18); Bilirubin, Total 0.2 mg/dL (0.2-1.0); CO2 29.5 mmol/L (21.0-32.0); CREATININE 1.1 mg/dL (0.70-1.30); Calcium 9.2 mg/dL (8.5-10.1); Chloride 99 mmol/L (98-107); Estimated GFR 76.37 (mL/min/1.73m2); Glucose 120 mg/dL (74-106); Potassium 3.2 mmol/L (3.5-5.1); Sodium 137 mmol/L (136-145); Total Protein 7.6 g/dL (6.4-8.2)
[2022-09-15 13:53] LABS: COMMENT (LAB VIEW ONLY) 70.44 mg/dL; Microalb ug/mg Crea 7.7 ug/mg Cr
[2022-09-15 14:11] LABS: Vitamin D 25 Total 30.3 ng/mL (30-100)
[2022-09-15 22:52] LABS: Estimated Average Glucose 123 mg/dL; Hemoglobin A1C 5.9 % (<5.7)
== END 2022-09-15 03:39 | disposition home or self-care (01) ==
LOC: LBO 03:38
PROVIDERS: PCP Family Medicine; Visit Provider Family Medicine
DX: E55.9 Vitamin D deficiency, unspecified (principal); E11.9 Type 2 diabetes mellitus without complications; E87.1 Hypo-osmolality and hyponatremia
CPT/HCPCS: 36415; 80053; 82306; 82043; 82570; 83036

== ENCOUNTER 2022-11-03 03:40 | Outpatient (CLI) | payer OTHER, SELFPAY ==
[2022-11-03 15:20] LABS: HCT 35.6 % (40.0-50.0); MCH 29.6 pg (27.0-33.0); MCHC 33.7 % (32.0-36.0); MCV 88 fL (80-95); MPV 10.9 fL (8.0-11.0); Platelet Count 192 10^3/uL (130-400); RBC 4.06 10^6/uL (4.36-5.78); RDW 15.9 % (11.8-14.1); RDW-SD 49.1 fL; WBC 7.16 10^3/uL (4.4-10.8)
[2022-11-03 16:06] LABS: ALT 40 U/L (16-63); AST 23 U/L (15-37); Albumin 3.7 g/dL (3.4-5.0); Alkaline Phosphatase 73 U/L (46-116); Anion Gap 8.9 mmol/L (3-11); BUN 11 mg/dL (7-18); Bilirubin, Total 0.3 mg/dL (0.2-1.0); CO2 30.1 mmol/L (21.0-32.0); Calcium 9.1 mg/dL (8.5-10.1); Chloride 99 mmol/L (98-107); Estimated GFR 85.63 (mL/min/1.73m2); Glucose 139 mg/dL (74-106); Potassium 3.8 mmol/L (3.5-5.1); Sodium 138 mmol/L (136-145); TSH (W/Ref FT4) 1.65 uIU/mL (0.36-3.74); Total Protein 7.7 g/dL (6.4-8.2)
== END 2022-11-03 03:41 | disposition home or self-care (01) ==
PROVIDERS: PCP Family Medicine; Visit Provider Family Medicine
DX: R05.9 Cough, unspecified
CPT/HCPCS: 36415; 80053; 85027; 84443

== ENCOUNTER 2023-02-22 03:11 | Outpatient (CLI) | payer SELFPAY ==
[2023-02-23 19:09] LABS: PSA, Screening 1.8 ng/mL (<=4.5)
[2023-02-27 03:40] LABS: Testosterone, Bioavailable 37 ng/dL (40-168); Testosterone, Total 180 ng/dL (240-950)
== END 2023-02-22 03:12 | disposition home or self-care (01) ==
PROVIDERS: PCP Family Medicine; Visit Provider Family Medicine
DX: N52.9 Male erectile dysfunction, unspecified (principal); Z12.5 Encounter for screening for malignant neoplasm of prostate
CPT/HCPCS: 36415; 84153; 84403; 84410

== ENCOUNTER 2023-04-26 02:39 | Outpatient (CLI) | payer MEDICAID, SELFPAY ==
[2023-04-26 12:06] LABS: CREATININE 1.2 mg/dL (0.70-1.30)
[2023-05-01 01:54] LABS: Testosterone, Bioavailable 58 ng/dL (40-168); Testosterone, Total 299 ng/dL (240-950)
== END 2023-04-26 02:40 | disposition home or self-care (01) ==
LOC: LBO 02:40
PROVIDERS: PCP Family Medicine; Visit Provider Family Medicine
DX: K57.30 Diverticulosis of large intestine without perforation or abscess without bleeding (principal); R79.89 Other specified abnormal findings of blood chemistry
CPT/HCPCS: 36415; 84403; 84410; 82565

== ENCOUNTER → 2023-05-05 02:05 | Outpatient (CLI) | payer MEDICAID, SELFPAY ==
--- NOTE | 2023-05-05 07:30 | DI.CT_ITS ---
Exam(s) CT ABDOMEN PELVIS W EXAM: CT ABDOMEN PELVIS W CLINICAL HISTORY: severe diverticulosis,k57.30 TECHNIQUE: Imaging Protocol: Axial computed tomography images with coronal and sagittal reformatted images were created and reviewed CONTRAST MATERIAL: Intravenous: Omnipaque 350 Contrast volume:100 mL Oral: Yes COMPARISON: CT CT ABDOMEN PELVIS W from 07/21/2022 FINDINGS: ABDOMEN: Lung Bases: Normal where visualized. Liver: Fatty infiltration of the liver. No measurable mass. Portal, Superior Mesenteric, and Splenic Veins: Unremarkable. Gallbladder and Biliary Tract: No radiodense calculus or dilation. Pancreas: Normal density, no abnormal calcifications or inflammatory process. Spleen: Normal. Adrenals: There is a stable left adrenal adenoma. It measures 3.1 x 3.1 cm. This is grossly unchang ed compared to the prior examination. No right adrenal nodule. Kidneys: Normal size, contour and axis. Left lower pole renal stone. No hydronephrosis. Stable righ t renal cyst. Abdominal Aorta: Abdominal portion non-dilated. Atherosclerosis. Bowel: There is diverticulosis of the colon without evidence of a diverticulitis. There is no eviden ce of bowel obstruction or inflammation. Appendix is unremarkable. Peritoneal Cavity: No ascites, collection or mesenteric inflammatory response. No free air. Lymph Nodes: Within normal limits. Bones: Within normal limits for the patient's age. Soft Tissues: There is a fat containing left inguinal hernia. PELVIS: Bladder: There is thickening of the wall of the urinary bladder. The urinary bladder is incompletely distended. Reproductive Organs: Unremarkable as visualized. Lymph Nodes: Within normal limits. Bones: Within normal limits for the patient's age. IMPRESSION: 1. Colonic diverticulosis without evidence of a diverticulitis. 2. Thickening of the wall of the urinary bladder. This may be due to incomplete distension, however an infectious or inflammatory cystitis cannot be excluded. Please correlate clinically. 3. Stable incidental findings in the abdomen and pelvis as described above. RADIATION DOSE DELIVERED: 1,291.27mGy.cm Total DLP DATA REPOSITORY: All CT scans at this facility are submitted to the National Radiology Data Registry (NRDR) Dose Index Registry (DIR) with the [employer] (ACR). RADIATION OPTIMIZATION: All CT scans at this facility use at least one of these dose optimization te chniques: automated exposure control; mA and/or kV adjustment per patient size (includes targeted exa ms where dose is matched to clinical indication); or iterative reconstruction.
[2023-05-05] MEDS: Barium Sulfate 2% W/V-Creamy Vanilla Smoothie 450 ML BTL PO ×2 (09:16→09:17)
[2023-05-05] MEDS: Omnipaque 350 MG/ML 100 ML BTL IJ (10:58)
[2023-05-05] MEDS: Normal Saline - Diluent 50 ML VIAL IJ (10:59)
== END ==
PROVIDERS: PCP Family Medicine; Visit Provider Family Medicine
DX: K57.30 Diverticulosis of large intestine without perforation or abscess without bleeding (principal); N32.89 Other specified disorders of bladder
CPT/HCPCS: 74177; J3490

== ENCOUNTER 2023-06-21 03:53 | Outpatient (CLI) | payer MEDICAID, SELFPAY ==
[2023-06-21 13:06] LABS: Abs Immature Grans 0.08 10^3/uL (0.0-0.06); Absolute Basophil Count 0.05 10^3/uL (0.0-0.2); Absolute Eosinophil Count 0.02 10^3/uL (0.0-0.7); Absolute Monocyte Count 0.59 10^3/uL (0.1-0.8); Basophils % 0.4; Eosinophils % 0.2; HCT 40.8 % (40.0-50.0); HGB 13.3 g/dL (13.5-17.5); Immature Grans % 0.7; Lymphocytes % 15.7; MCH 27.6 pg (27.0-33.0); MCHC 32.6 % (32.0-36.0); MCV 85 fL (80-95); MPV 10.5 fL (8.0-11.0); Monocytes % 4.9; Neutrophils % 78.1; Platelet Count 264 10^3/uL (130-400); RBC 4.82 10^6/uL (4.36-5.78); RDW 15.9 % (11.8-14.1); RDW-SD 49.1 fL; WBC 12.12 10^3/uL (4.4-10.8)
[2023-06-21 13:09] LABS: Absolute Neutrophil Count 9.47 10^3/uL (1.2-6.7)
[2023-06-21 14:21] LABS: Ferritin 47 ng/mL (26-388)
[2023-06-26 02:14] LABS: Testosterone, Bioavailable 62 ng/dL (40-168); Testosterone, Total 353 ng/dL (240-950)
== END 2023-06-21 03:54 | disposition home or self-care (01) ==
PROVIDERS: Nurse Practitioner Family; PCP Family Medicine; Visit Provider Family Medicine
DX: K62.5 Hemorrhage of anus and rectum (principal); R79.89 Other specified abnormal findings of blood chemistry; E29.1 Testicular hypofunction
CPT/HCPCS: 36415; 84403; 84410; 82728; 85025

== ENCOUNTER → 2023-07-02 01:00 | Outpatient (CLI) | payer MEDICAID, SELFPAY ==
--- NOTE | 2023-07-02 07:45 | DI.RAD_ITS ---
Exam(s) XR CERVICAL SPINE COMP 4-5V EXAM: XR CERVICAL SPINE COMP 4-5V CLINICAL HISTORY: neck pain and left arm pain,M54.2. TECHNIQUE: 2D digital imaging was performed. Five views were performed. COMPARISON: No exams were available for comparison FINDINGS: BONES: No fracture or destructive lesion. Vertebral bodies are unremarkable. Minimal facet degenera tive changes. Minimal endplate osteophytes. Mild lateral neural foraminal narrowing. DISKS: Intervertebral disc spaces are maintained. ALIGNMENT: Cervical spinal alignment is within normal limits. The odontoid and atlantoaxial articulat ions are normal. SOFT TISSUE: Calcifications at the carotid bulbs.. The lung apices are clear. IMPRESSION: Minimal degenerative changes. DATA REPOSITORY: RADIATION DOSE DELIVERED:
--- NOTE | 2023-07-02 07:45 | DI.RAD_ITS ---
Exam(s) XR THORACIC SPINE COMPLETE EXAM: XR THORACIC SPINE COMPLETE CLINICAL HISTORY: left upper back pain,M54.6. TECHNIQUE: 2D digital imaging was performed. Three views. COMPARISON: CR XR CERVICAL SPINE COMP 4-5V from 07/02/2023 FINDINGS: BONES: There is no fracture or destructive lesion. The vertebral bodies and posterior elements are un remarkable. Prominent flowing osteophytes consistent with DISH. ALIGNMENT: Within normal limits. DISKS: Interverebral disc spaces are maintained. SOFT TISSUE: Visualized lungs are clear. IMPRESSION: Prominent flowing osteophytes consistent with DISH. DATA REPOSITORY: RADIATION DOSE DELIVERED:
== END ==
PROVIDERS: PCP Family Medicine; Visit Provider Family Medicine
DX: M54.6 Pain in thoracic spine (principal); M54.2 Cervicalgia
CPT/HCPCS: 72050; 72072

== ENCOUNTER 2023-07-13 01:30 | Outpatient (CLI) | payer MEDICAID, SELFPAY ==
[2023-07-13 10:42] LABS: ALT 38 U/L (16-63); AST 17 U/L (15-37); Albumin 3.6 g/dL (3.4-5.0); Alkaline Phosphatase 84 U/L (46-116); Anion Gap 10.3 mmol/L (3-11); BUN 19 mg/dL (7-18); Bilirubin, Total 0.3 mg/dL (0.2-1.0); CO2 26.7 mmol/L (21.0-32.0); CREATININE 1.1 mg/dL (0.70-1.30); Calcium 9.2 mg/dL (8.5-10.1); Chloride 100 mmol/L (98-107); Estimated GFR 76.37 (mL/min/1.73m2); Glucose 193 mg/dL (74-106); Potassium 3.4 mmol/L (3.5-5.1); Sodium 137 mmol/L (136-145); Total Protein 7.7 g/dL (6.4-8.2)
[2023-07-21 09:14] LABS: Testosterone, Total 384 ng/dL (240-950)
== END 2023-07-13 01:31 | disposition home or self-care (01) ==
LOC: LBO 01:30
PROVIDERS: Nurse Practitioner Family; PCP Family Medicine; Visit Provider Nurse Practitioner Gerontology
DX: E29.1 Testicular hypofunction (principal); N52.9 Male erectile dysfunction, unspecified; I10 Essential (primary) hypertension; R73.03 Prediabetes; K62.5 Hemorrhage of anus and rectum
CPT/HCPCS: 36415; 80053; 84403

== ENCOUNTER 2023-07-19 04:22 | Outpatient (CLI) | payer MEDICAID, SELFPAY ==
[2023-07-19 18:07] LABS: Hemoglobin A1C 6.5 % (<5.7)
== END 2023-07-19 04:23 | disposition home or self-care (01) ==
LOC: LBO 04:23
PROVIDERS: Nurse Practitioner Family; PCP Family Medicine; Visit Provider Family Medicine
DX: R73.03 Prediabetes (principal)
CPT/HCPCS: 36415; 83036

== ENCOUNTER 2023-09-16 11:08 | Outpatient (REF) | payer MEDICAID, SELFPAY ==
[2023-09-16 13:28] LABS: COMMENT (LAB VIEW ONLY) 77.26 mg/dL; Microalb ug/mg Crea 35.7 ug/mg Cr
== END 2023-09-16 11:09 | disposition home or self-care (01) ==
LOC: LBN 11:08
PROVIDERS: PCP Family Medicine; Visit Provider Family Medicine
DX: E11.9 Type 2 diabetes mellitus without complications (principal); F17.210 Nicotine dependence, cigarettes, uncomplicated
CPT/HCPCS: 82043; 82570

== ENCOUNTER → 2023-09-20 02:06 | Outpatient (CLI) | payer MEDICAID, SELFPAY ==
--- NOTE | 2023-09-20 07:00 | DI.CTLCSR_ITS ---
Exam(s) CT CHEST LUNG CANCER SCREEN EXAM: CT CHEST LUNG CANCER SCREEN CLINICAL HISTORY: Screening for lung cancer,CURRENT SMOKER,F17.210 TECHNIQUE: Imaging Protocol: Axial computed tomography images with coronal and sagittal reformatted images were created and reviewed COMPARISON: CT CT ABDOMEN PELVIS W from 07/21/[address] ABDOMEN PELVIS W from 05/05/2023 FINDINGS: Tracheobronchial tree: Patent where visualized. Pulmonary parenchyma: No consolidation or dominant measurable mass. No architectural distortion. Lung Nodules: None. Mediastinum and [place]: No dominant adenopathy or fluid collection. The esophagus is unremarkable. Thyroid gland: Unremarkable. Lymph nodes: Unremarkable. Pleura: No effusion or pneumothorax. Heart: The heart is not dilated. Coronary artery calcification is present. No pericardial effusion. Aorta: Thoracic aorta non-dilated.Vascular calcifications are present. Upper abdomen: There is a stable 3.1 cm hypodense left adrenal nodule previously shown to be an adre nal adenoma by MRI examination. No follow-up is recommended. Soft Tissues: Gynecomastia. Bones: Within normal limits. IMPRESSION: No pulmonary nodules. Lung RADS Cat 1 - Negative: No nodules and definitely benign nodules Lung-RADS 1.0 CATEGORIES: Category 0 - Prior chest CT exam(s) being located for comparison. Category 1 - Annual screening in 12 months. No nodules or definitely benign nodules. Category 2 - Annual screening in 12 months. Benign appearance. Nodules with low likelihood of becomin g active cancer. Category 3 - 6-month follow-up. Probably benign. Short-term follow-up suggested. Nodules with low lik elihood of becoming active cancer. Category 4A - 3-month follow-up and CT/PET if >8 mm in size. Suspicious finding. Findings which requi re additional testing. Category 4B - Findings which require additional testing and tissue sampling. Suspicious finding. Category 4X - Category 3 or 4 nodules with additional features or imaging findings that increases the suspicion of malignancy. Modifier S- Potentially clinically significant finding. (Non lung cancer) RADIATION DOSE DELIVERED: 84.94mGy.cm Total DLP 84.94mGy.cmTotal DLP DATA REPOSITORY: All CT scans at this facility are submitted to the National Radiology Data Registry (NRDR) Dose Index Registry (DIR) with the [employer] (ACR). RADIATION OPTIMIZATION: All CT scans at this facility use at least one of these dose optimization te chniques: automated exposure control; mA and/or kV adjustment per patient size (includes targeted exa ms where dose is matched to clinical indication); or iterative reconstruction.
== END ==
PROVIDERS: PCP Family Medicine; Visit Provider Family Medicine
DX: F17.210 Nicotine dependence, cigarettes, uncomplicated (principal); Z12.2 Encounter for screening for malignant neoplasm of respiratory organs
CPT/HCPCS: 71271

== ENCOUNTER 2023-11-02 08:55 | Day surgery (SDC) | payer MEDICAID, SELFPAY ==
[2023-11-02 09:18] VITALS: BP 144/88; PULSE 83; RESP 16; TEMP 36.3; O2SAT 96
[2023-11-02] MEDS: Lactated Ringers 1,000 ML 80 ML IV (09:38)
--- NOTE | 2023-11-02 10:09 | SCONE_ITS ---
Date of service: 11/02/23 Time of Service: 10:13 Assessment and Plan Assessment and plan (1) Colon cancer screening: Status: Acute Assessment and plan: 63-year-old man due for colon cancer surveillance/screening. Baseline risk status. Separately, he is having some bleeding intermittently from hemorrhoids. He wants to have banding performed. Overall plan: Colonoscopy with hemorrhoid banding History of Present Illness Narrative: 63-year-old man has had prior colonoscopies and is due for surveillance. He has never had polyps found. He has no family history of colon cancer. He does not really have any symptoms but occasionally notices bleeding from hemorrhoids. He has had hemorrhoid banding performed in the past. He is hoping to have banding performed today, for a second time, with the goal of being getting rid of any bleeding that he sees. He denies pain or itching around his anus. He has never had intra-abdominal surgery. PFSH All Active Problems (Updated 11/02/23 @ 10:14 by Joseph Landaverde MD) Colon cancer screening (Acute) Constipation (Acute) Type 2 diabetes mellitus (Acute) Thoracic back pain (Acute) Rectal bleeding (Acute) Diverticulosis of colon (Acute) Diverticula of intestine (Acute) Low testosterone in male (Acute) Erectile dysfunction (Acute) 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 (Acute) reimaged 05/22: 3.1X3.1 - unchanged Hyponatremia (Acute) Encounter for annual physical exam (Acute) Prediabetes (Acute) Urine incontinence (Acute) Generalized anxiety disorder (Acute) Cervical pain (neck) (Acute) ADD (attention deficit disorder) without hyperactivity (Chronic 05/10/17) Anxiety (Chronic 02/27/13) Depressive disorder (Chronic 06/12/13) long hx; mult meds; comm counselor intensive OP treatment [place]? Inpatient [place] MRI of head is neg. Essential hypertension (Chronic 05/26/13) Non-alcoholic fatty liver disease (Chronic) per [facility] in 1998 Vitamin D deficiency (Chronic 11/26/09) Medical History (Updated 11/02/23 @ 10:14 by Joseph Landaverde MD) Fever Cough Chest pain (08/17/17) Hypokalemia (08/13/17) Hyponatremia (08/13/17) Palpitations (07/29/01) Pt. states benign Polyp of colon (07/29/99) Arm paresthesia, left Polyp of colon, hyperplastic 07/29/99 Palpitations 07/29/01 ETT Holter and echo=normal Carpal tunnel syndrome 12/25/13 Hyponatremia 08/13/17 Hypokalemia 08/13/17 Chest pain, unspecified 08/17/17 Pneumonia Elevated glucose (04/13/17) A1c - 6.3 04/15 Surgical History History of discectomy History of surgical procedure Status post hemorrhoidectomy Status post tonsillectomy and adenoidectomy S/P tonsillectomy and adenoidectomy H/O surgical procedure middle ear repair S/P discectomy [facility] [place] Tonsillectomy and adenoidectomy MIDDLE EAR REPAIR Hemorrhoidectomy Colonoscopy - MAC (10/13/12) Family History Mother Depression Father , age 78 Alcohol abuse Heart disease Hypertension Stroke Brother Depression Social History Smoking/Tobacco Use Status: Current every day Tobacco Type: cigarettes Tobacco: How many years used: 30 Quit status: has quit before Second Hand Exposure: Yes Smoking risk assessment performed?: Yes Alcohol Intake: former Drug use: Never Substance use type: does not use Caregiver/Support person: No Household members: family Housing: house Communication Needs: Hard of Hearing Do you need help understanding health information?: Never Pets and animals: Yes Sexually active: No Do you think of yourself as: straight/heterosexual Current gender identity: male What is your relationship status?: never How often do you talk on the phone with friends or family?: once per week How often do you get together with friends or relatives?: once per week How often do you attend jewish or quaker services?: 4 or more times per year Do you belong to any clubs or organized social groups?: no Panel score (0-1 are the most socially isolated patients): 1 Duration: < 15 minutes/day Frequency: 3-4 times per week Sandra/Yazdanism: Bahai Special sandra needs: No Seatbelt use: always Helmet use: Yes Helmet use: sometimes 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
--- NOTE | 2023-11-02 10:15 | W.COLOREPORT ---
Date of service: 11/02/23 Time of Service: 10:15 Colonoscopy Report Procedure Description: PROCEDURES PERFORMED: 1. Colonoscopy with cold forceps polypectomy x 4 PREOPERATIVE DIAGNOSIS: Surveillance colonoscopy POSTOPERATIVE DIAGNOSIS: Pandiverticulosis, colorectal polyps, grade 2 internal hemorrhoids SURGEON: Francesco Landaverde MD INDICATION FOR PROCEDURE: The patient is a 63-year-old man who has had prior normal colonoscopies. No family history of colon cancer. No polyps. Due for surveillance. FINDINGS: Normal terminal ileum. 4, small 2-3 mm flat, hyperplastic?appearing polyps removed from the ascending colon, the transverse colon, the sigmoid colon as well as the rectum with cold forceps technique. There are scattered diverticular changes present throughout the entire colon. Grade 2 internal hemorrhoids present at all 3 columns. Banding performed (see separate procedure note). SURVEILLANCE interval/FOLLOW-UP: 3-10 years depending on path results of the polyps. Hyperplastic or adenomatous would get a 7 to 10-year follow-up well sessile serrated or villous histology would get 3 years. SPECIMENS: Yes EBL: Minimal COMPLICATIONS: None QUALITY of prep: Excellent Procedure in detail: The patient gave written consent and was in agreement with the indications, the potential risks as well as the benefits of the procedure. They were taken to the endoscopy suite and laid in the left lateral decubitus position. A timeout was performed and anesthesia was administered which was tolerated well. I started the procedure. Digital rectal and visual examination was performed and grossly within normal limits. A well-lubricated flexible colonoscope was then introduced and passed without any notable difficulty all the way to the cecum identified by the ileocecal valve and the appendiceal orifice. Terminal ileum was intubated and looked good. The scope was then slowly withdrawn with the above-noted findings. The patient tolerated the procedure well and then we performed hemorrhoid banding (see separate procedure note). After that he was taken to the PACU in hemodynamically stable condition.
--- NOTE | 2023-11-02 10:16 | W.PM.DSUDISC ---
Date of service: 11/02/23 Time of Service: 10:16 Discharge Plan Disposition Patient Disposition: Home Condition: Good Discharge Details Attending Provider: Joseph Landaverde Primary Care Provider: Kayleigh Guzman Home Meds and New Rx's Prescriptions: No Action losartan-hydrochlorothiazide 100-25 mg tablet 1 tab PO DAILY Qty: 90 4RF bisacodyl [Dulcolax (bisacodyl)] 5 mg tablet,delayed release (DR/EC) 5 mg PO ONCE Qty: 4 0RF Rx Instructions: Take per colonoscopy instructions provided by ordering providers office polyethylene glycol 3350 17 gram/dose powder 17 g PO ONCE Qty: 238 0RF Rx Instructions: Take per colonoscopy instructions provided by ordering providers office ibuprofen 600 mg tablet 600 mg PO TID PRN (Reason: pain) Qty: 60 2RF glucosamine-chondroitin 900 mg tablet 1,800 mg PO DAILY bupropion HCl [Wellbutrin XL] 300 mg tablet extended release 24 hr 300 mg PO QAM Qty: 30 2RF duloxetine 40 mg capsule,delayed release(DR/EC) 40 mg PO BID Qty: 60 2RF calcium carbonate-vitamin D3 [Caltrate with Vitamin D3] 600 mg-20 mcg (800 unit) tablet 1 tab PO DAILY Qty: 90 5RF Rx Instructions: 600mg/200 unit tablet multivitamin Tablet 1 tab PO DAILY Qty: 90 4RF oxcarbazepine [Trileptal] 600 mg tablet 600 mg PO BID Qty: 180 6RF ergocalciferol (vitamin D2) 1,250 mcg (50,000 unit) capsule 50,000 unit PO QWEEK Qty: 13 4RF gabapentin 300 mg capsule 300 mg PO .noon Qty: 90 12RF albuterol sulfate 90 mcg/actuation HFA aerosol inhaler 2 puff inhalation Q6H PRN (Reason: shortness of breath or wheezing) Qty: 6.7 4RF potassium chloride 10 mEq capsule, extended release 20 meq PO BID Qty: 180 4RF amlodipine 10 mg tablet 10 mg PO DAILY Qty: 90 3RF (DME) syringe (disposable) 1 mL syringe See Rx Instructions .MEDSUPPLY Qty: 25 0RF Rx Instructions: use every 2 weeks; 1ml syringe; 25gx1.5 for INJ; 18gx1 to draw up medication testosterone cypionate [Depo-Testosterone] 200 mg/mL oil 200 mg IM Q2W Qty: 10 3RF Rx Instructions: 1 mL intramuscular every 2 weeks cholecalciferol (vitamin D3) 25 mcg (1,000 unit) capsule 1,000 unit PO occasionally Rx Instructions: taken on mondays (DME) needle (disp) 25 gauge 25 gauge x 1 1/2 needle See Rx Instructions .Route Qty: 10 2RF Rx Instructions: For injecting testosterone 1 needle every weeks (DME) needle (disp) 18 G 18 gauge x 1 1/4 needle See Rx Instructions .Route Qty: 10 2RF Rx Instructions: For drawing up testosterone 1 needle every weeks sildenafil 100 mg tablet 100 mg PO DAILY PRN (Reason: sexual activity) Qty: 90 3RF Rx Instructions: administer 30 minutes to 4 hours before activity; [email or web address] acetaminophen 500 mg tablet 500 mg PO Q6H PRN (Reason: pain) Qty: 60 2RF Discharge Instructions Additional Instructions: FINDINGS: Some small polyps were found and removed today. This is why we do the colonoscopies. They are nothing to worry about. What ever type they are depends on when your repeat colonoscopy should be done and you will get called with that result in a couple of weeks. Probably 10 years. He has extensive diverticular disease in your colon. This is extremely common, benign and nothing can be done about it. This is probably the reason you have constipation/difficulty going to the bathroom. [id number] stool softeners can be helpful. The hemorrhoids were banded as we talked about today and that should give you significant relief for at least a few years. Stand Alone Forms: Colonoscopy Post Instructions Activity:: Activity as Tolerated Diet:: As Tolerated DS: Diagnosis Discharge Diagnosis (1) Colon cancer screening: Status: Acute
--- NOTE | 2023-11-02 10:22 | ANES.PREOP_ITS ---
General Info Date of Service Date Performed: 11/02/23 Height: 5 ft 10.5 in Weight: 122.3 kg Body Mass Index (BMI): 38.1 Surgical Procedure: Operation Date: 11/02/23 10:55 Proposed Procedure Side Surgeon p Colonoscopy Joseph Landaverde MD s Possible Hemorrhoid Banding Joseph Landaverde MD Meds Allergies and Home Medications Allergies Allergy/AdvReac Type Severity Reaction Status Date / Time venom-honey bee Allergy Severe Anaphylaxsi Verified 11/02/23 09:24 s clonazepam AdvReac Severe Suicidal Verified 11/02/23 09:24 Ideation lactose AdvReac Intermediate GI Upset Verified 11/02/23 09:24 Yellowjacket Allergy Severe Anaphylaxis Uncoded 11/02/23 09:24 Home Medication Medication Instructions Recorded acetaminophen 500 mg tablet 500 mg PO Q6H PRN pain #60 tabs 06/28/19 ibuprofen 600 mg tablet 600 mg PO TID PRN pain #60 tabs 10/23/21 calcium carbonate 600 mg-vitamin 1 tab PO DAILY #90 tabs 08/17/22 D3 20 mcg (800 unit) tablet (Caltrate with Vitamin D3) multivitamin 1 tab PO DAILY #90 tabs 08/26/22 ergocalciferol (vitamin D2) 1,250 50,000 unit PO QWEEK #13 caps 11/09/22 mcg (50,000 unit) capsule oxcarbazepine 600 mg tablet 600 mg PO BID #180 tab-caps 11/09/22 (Trileptal) gabapentin 300 mg capsule 300 mg PO .noon #90 tab-caps 11/12/22 albuterol sulfate 90 mcg/actuation 2 puff inhalation Q6H PRN 11/24/22 aerosol inhaler shortness of breath or wheezing #6.7 grams potassium chloride 10 mEq 20 meq (2 x 10 mEq) PO BID #180 04/19/23 capsule,extended release caps antiarthritic combination no.2 900 1,800 mg PO DAILY 04/26/23 mg tablet (glucosamine-chondroitin) amlodipine 10 mg tablet 10 mg PO DAILY #90 tabs 06/21/23 syringe (disposable) 1 mL #25 ea 07/26/23 testosterone cypionate 200 mg/mL 200 mg IM Q2W hypogonadism #10 mL 07/26/23 intramuscular oil (Depo-Testosterone) bisacodyl 5 mg tablet,delayed 5 mg PO ONCE #4 tabs 07/30/23 release (Dulcolax (bisacodyl)) cholecalciferol (vitamin D3) 25 1,000 unit PO occasionally 07/30/23 mcg (1,000 unit) capsule polyethylene glycol 3350 17 17 g PO ONCE #238 grams 07/30/23 gram/dose oral powder needle (disp) 18 G 18 gauge x 1 #10 ea 08/02/2309/02 needle (disp) 25 gauge 25 gauge x #10 ea 08/02/23 1 08/31 losartan 100 1 tab PO DAILY #90 tabs 09/16/23 mg-hydrochlorothiazide 25 mg tablet sildenafil 100 mg tablet 100 mg PO DAILY PRN sexual 09/20/23 activity #90 tabs bupropion HCl 300 mg 24 hr tablet, 300 mg PO QAM #30 tabs 10/07/23 extended release (Wellbutrin XL) duloxetine 40 mg capsule,delayed 40 mg PO BID #60 caps 10/07/23 release Current Visit Medications: Current Medications Generic Name Dose Route Start Last Admin Trade Name Jorgeq PRN Reason Stop Dose Admin Ringer's Solution 1,000 mls @ 80 mls/hr 11/02/23 06:00 11/02/23 09:38 IV 12/01/23 23:59 80 mls/hr INFUSION JAGUAR Administration IV Miscellaneous Supplies 1 each 11/02/23 06:00 Iv Access IV 12/01/23 23:59 DIRECTED JAGUAR Sodium Chloride 0 ml 11/02/23 06:00 Normal Saline Flush 10 Ml Syr IV 12/01/23 23:59 PRN PRN Sodium Chloride 0 ml 11/02/23 06:00 Normal Saline 10 Ml Vial IJ 12/01/23 23:59 DIRECTED PRN Sterile Water 0 ml 11/02/23 06:00 Water,Injection,Sterile 10 Ml Vial IJ 12/01/23 23:59 DIRECTED PRN PFSH Active Problems Active Problems: Problem Status Onset Code Colon cancer screening Z12.11 Constipation K59.00 Type 2 diabetes mellitus E11.9 Thoracic back pain M54.6 Rectal bleeding K62.5 Diverticulosis of colon K57.30 Diverticula of intestine K57.30 Low testosterone in male R79.89 Erectile dysfunction N52.9 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 E27.8 Hyponatremia E87.1 Encounter for annual physical exam Z00.00 Prediabetes R73.03 Urine incontinence R32 Generalized anxiety disorder F41.1 Cervical pain (neck) M54.2 ADD (attention deficit disorder) without hyperactivity 05/10/17 F98.8 Anxiety 02/27/13 F41.9 Depressive disorder 06/12/13 F32.9 Essential hypertension 05/26/13 I10 Non-alcoholic fatty liver disease K76.0 Vitamin D deficiency 11/26/09 E55.9 Medical History Medical History (Updated 11/02/23 @ 10:14 by Joseph Landaverde MD) Fever Cough Chest pain (08/17/17) Hypokalemia (08/13/17) Hyponatremia (08/13/17) Palpitations (07/29/01) Pt. states benign Polyp of colon (07/29/99) Arm paresthesia, left Polyp of colon, hyperplastic 07/29/99 Palpitations 07/29/01 ETT Holter and echo=normal Carpal tunnel syndrome 12/25/13 Hyponatremia 08/13/17 Hypokalemia 08/13/17 Chest pain, unspecified 08/17/17 Pneumonia Elevated glucose (04/13/17) A1c - 6.3 04/15 Medical History Comments:: 11/02/23: pt reports he has anxiety related chest pain, last experienced in February 2023 when his mom passed Surgical History Surgical History History of discectomy History of surgical procedure Status post hemorrhoidectomy Status post tonsillectomy and adenoidectomy S/P tonsillectomy and adenoidectomy H/O surgical procedure middle ear repair S/P disce[place] [facility] [place]onsillectomy and adenoidectomy MIDDLE EAR REPAIR Hemorrhoidectomy Colonoscopy - MAC (10/13/12) Tobacco Smoking/Tobacco Use Status: Current every day Tobacco Type: cigarettes Smoking cigarettes per day: 10 Passive smoking exposure: Yes Second hand exposure: Yes Alcohol Alcohol Intake: former Substance Use Substance use: Never Substance use type: does not use Vital Signs and Lab Results Vital Signs Most Recent Vital Signs in EMR: Most Recent Vital Signs Temp Pulse Resp BP Pulse Ox 36.3 C L 83 16 144/88 H 96 11/02/23 09:18 11/02/23 09:18 11/02/23 09:18 11/02/23 09:18 11/02/23 09:18 Lab Results Blood Type / Crossmatch: No Data to Display Complete Blood Count: No Data to Display Complete Metabolic Panel: No Data to Display Liver Function Panel: 2 No Data to Display Coagulation Panel: No Data to Display Cardiac Panel: No Data to Display Arterial Blood Gas: No Data to Display Venous Blood Gas: No Data to Display Pancreas Panel: No Data to Display Thyroid Panel: No Data to Display Infectious Disease: No Data to Display Blood Cultures: No Data to Display Toxicology Panel: No Data to Display Imaging and Studies Imaging and Studies Study information below may be from another EMR and interpreted by another provider. Please see original notes in EMR for more complete details. Stress Test Summary: 08/16/2017: Impressions: Normal study after maximal exercise. Summary: 1. Stress ECG conclusions: The stress ECG is negative. Padron treadmill score: 3. This score predicts a moderate risk of cardiac events. Recommendations: Can consider perfusion imaging if symptoms persist or clinical suspicion warrants. Anesthesia Assessment and Plan Anesthesia History Personal History: No History of Anesthesia Complications Family History: No Family History of Anesthesia Complications Exercise Tolerance Exercise Tolerance: Metabolic Equivalents>4 Pertinent Negatives Pertinent Negatives: No Symptoms of GERD, No Major Cardiovascular Symptoms or Complaints and No Major Pulmonary Symptoms or Complaints Cardiac & Pulmonary Exam Cardiac Exam: Normal S1/S2 Heart Sounds Pulmonary Exam: Clear Bilateral Breath Sounds Implantable Cardiac Device Does patient have a Pacemaker or an ICD?: No Airway Exam Known Difficult Airway: No Mallampati Class: 1 Mouth Opening: Normal (> 3cm) Thyromental Distance: Greater than 3 cm Neck Range of Motion: Full ROM Neck Circumference: Thick Teeth Condition: Normal Dentition Airway Comments: Possible sleep apnea, has not been evaluated ASA Classification ASA Score: ASA 2 Emergency Case?: No NPO Status NPO Status: NPO Clears >2 hours, Solids >8 hours Anesthesia Plan Resuscitation Status: Full Code Anesthesia Technique: General Anesthesia Airway Planned: Natural Airway Monitors Used: Standard Monitors
[2023-11-02 10:24] VITALS: BMI 38.1
--- NOTE | 2023-11-02 10:43 | BOWEL_PTH ---
PATIENT: Storm Mobley LOC: [facility] U#:[id number] AGE/SX: 63/M ROOM: RE11/02/[address]: Joseph Landaverde : 1960 BED: DIS: 11/02/2023 SPEC #: [id number] RECD: 11/02/23 12:51 STATUS: NANDINI RE #: [id number] BERNARDO: 11/02/23 10:[address]: Joseph Landaverde DEPT: Surgical Specimen RECD BY: Kelley Wilson ENTERED: 11/02/23 12:52 SP TYPE: Bowel OTHR DR: Kayleigh Guzman MD, DC Tissues: 1 - BIOPSY BOWEL 2 - BIOPSY BOWEL 3 - BIOPSY BOWEL 4 - BIOPSY BOWEL Procedures: GROSS AND MICRO LEVEL 4 Comments: [id number]
[2023-11-02 11:04] VITALS: BP 142/91; PULSE 71; RESP 16; TEMP 36.6; O2SAT 99
[2023-11-02 11:32] VITALS: BP 132/80; PULSE 68; RESP 18; TEMP 36.7; O2SAT 97
--- NOTE | 2023-11-02 11:47 | W.ANESPOSTOP ---
Postoperative Evaluation Date, Time and Location Date Performed: 11/02/23 Time Performed: 11:43 Patient Location: Day Surgery Unit Vital Signs Most Recent Imported Vital Signs: Most Recent Vital Signs Temp Pulse Resp BP Pulse Ox 36.7 C 68 18 132/80 97 11/02/23 11:32 11/02/23 11:32 11/02/23 11:32 11/02/23 11:32 11/02/23 11:32 Pain Score Most Recent Pain Score: Most Recent Pain Score Pain Level 5 11/02/23 11:32 Assessment Mental Status: Awake (Alert & Oriented to Patient Baseline) Airway and Respiratory Function: Patent airway with normal (patient baseline) respiratory exam Cardiovascular Function: Hemodynamically Stable Hydration Status: Adequately Hydrated Nausea & Vomiting: No Nausea or Vomiting Pain: Pt. Denies Any Pain Peripheral Nerve Block: Patient did not receive a nerve block
--- NOTE | 2023-11-03 11:51 | W.PM.OP ---
Date of service: 11/02/23 Time of Service: 10:15 Operative Note Operative Note Refer to Anesthesia Record Procedure Description: Procedure performed: Anoscopy with banding Indication: The patient has symptomatic hemorrhoids and gave written consent prior to the procedure. The colonoscopy was completed (see separate procedure note) and anesthesia was continued and the patient was kept in the same position. A well?lubricated anoscope was introduced. Grade 2?3 internal hemorrhoids were noted at all 3 columns. Rubber band ligation was performed at all 3 columns in usual fashion. The patient was intentionally light on anesthesia at this point and tolerated the band ligation well and was not having any significant pain. The anoscope was removed and the patient was taken to the PACU in hemodynamically stable condition.
== END 2023-11-02 12:03 | disposition home or self-care (01) ==
PROVIDERS: PCP Family Medicine; Visit Provider Student in an Organized Health Care Education/Training Program
PROC: 0DJD8ZZ Inspection of Lower Intestinal Tract, Via Natural or Artificial Opening Endoscopic (ICD-10-PCS; CPT 45378; principal; 2023-11-02 10:45)
PROC: (CPT 45380; 2023-11-02 10:45)
DX: Z12.11 Encounter for screening for malignant neoplasm of colon (principal); D12.2 Benign neoplasm of ascending colon; K57.30 Diverticulosis of large intestine without perforation or abscess without bleeding; K64.1 Second degree hemorrhoids
CPT/HCPCS: 45380; 00123; 88305; J2001; J2704

== ENCOUNTER 2023-11-05 01:23 | Outpatient (CLI) | payer MEDICAID, SELFPAY ==
[2023-11-09 16:52] LABS: Testosterone, Total 336 ng/dL (240-950)
== END 2023-11-05 01:24 | disposition home or self-care (01) ==
LOC: LBO 01:23
PROVIDERS: PCP Family Medicine; Visit Provider Nurse Practitioner Gerontology
DX: E29.1 Testicular hypofunction (principal)
CPT/HCPCS: 36415; 84403

== ENCOUNTER 2023-11-30 14:26 | Outpatient (CLI) | payer MEDICAID, SELFPAY ==
[2023-11-30 15:54] LABS: HCT 40.9 % (40.0-50.0); HGB 13.2 g/dL (13.5-17.5); MCH 26.8 pg (27.0-33.0); MCHC 32.3 % (32.0-36.0); MCV 83 fL (80-95); MPV 10.1 fL (8.0-11.0); Platelet Count 294 10^3/uL (130-400); RBC 4.92 10^6/uL (4.36-5.78); RDW 14.9 % (11.8-14.1); RDW-SD 44.8 fL; WBC 9.34 10^3/uL (4.4-10.8)
[2023-11-30 16:03] LABS: Hemoglobin A1C 6.3 % (<5.7)
[2023-11-30 16:22] LABS: Iron 38 ug/dL (65-175)
[2023-11-30 16:50] LABS: ALT 28 U/L (16-63); AST 13 U/L (15-37); Albumin 3.8 g/dL (3.4-5.0); Alkaline Phosphatase 75 U/L (46-116); BUN 13 mg/dL (7-18); Bilirubin, Total 0.3 mg/dL (0.2-1.0); CREATININE 1.1 mg/dL (0.70-1.30); Calcium 8.6 mg/dL (8.5-10.1); Calculated LDL 118 mg/dL (<100); Chloride 101 mmol/L (98-107); Cholesterol 174 mg/dL (<200); Ferritin 75 ng/mL (26-388); Glucose 84 mg/dL (74-106); HDL Cholesterol 37 mg/dL (40-60); Potassium 3.3 mmol/L (3.5-5.1); Sodium 141 mmol/L (136-145); TSH (W/Ref FT4) 1.92 uIU/mL (0.36-3.74); Total Protein 7.6 g/dL (6.4-8.2); Triglyceride 98 mg/dL (<150); Vitamin B12 680 pg/mL (193-986)
== END 2023-11-30 14:27 | disposition home or self-care (01) ==
LOC: LBO 12-09 14:26
PROVIDERS: PCP Family Medicine; Visit Provider Family Medicine
DX: G47.30 Sleep apnea, unspecified (principal); E11.9 Type 2 diabetes mellitus without complications; I10 Essential (primary) hypertension; E03.9 Hypothyroidism, unspecified
CPT/HCPCS: 36415; 80053; 80061; 85027; 82607; 82728; 83036; 83540; 84443

== ENCOUNTER 2024-02-21 02:53 | Outpatient (CLI) | payer MEDICAID, SELFPAY ==
[2024-02-25 03:38] LABS: Testosterone, Total 1030 ng/dL (240-950)
== END 2024-02-21 02:54 | disposition home or self-care (01) ==
LOC: LBO 02:53
PROVIDERS: PCP Family Medicine; Visit Provider Nurse Practitioner Gerontology
DX: E29.1 Testicular hypofunction (principal)
CPT/HCPCS: 36415; 84403

== ENCOUNTER 2024-05-23 02:23 | Outpatient (CLI) | payer MEDICAID, SELFPAY ==
[2024-05-26 16:00] LABS: Testosterone, Total 301 ng/dL (240-950)
== END 2024-05-23 02:24 | disposition home or self-care (01) ==
LOC: LBO 02:23
PROVIDERS: PCP Family Medicine; Visit Provider Nurse Practitioner Gerontology
DX: E29.1 Testicular hypofunction (principal)
CPT/HCPCS: 36415; 84403

== ENCOUNTER 2024-05-28 18:13 | Emergency (ER) | payer MEDICAID, OTHER, SELFPAY ==
[2024-05-28 18:24] VITALS: BP 132/76; PULSE 95; RESP 14; TEMP 37.2; O2SAT 98
[2024-05-28] MEDS: Bupivacaine 0.5% Pres-Free 30 ML VIAL IJ (19:50)
[2024-05-28] MEDS: Cyclobenzaprine 10 MG TAB, 3 TABS/BTL PO (20:14)
[2024-05-28 20:15] VITALS: BP 132/76; PULSE 80; RESP 14; TEMP 37.2; O2SAT 98
--- NOTE | 2024-05-28 23:16 | ED.GENADUL_ITS ---
Discharge Plan Disposition Patient Disposition: Home Discharge Details Clinical Impression: Trapezius strain Primary Care Provider: Kayleigh Guzman ED Provider: Kelley Chaidez Home Meds and New Rx's Prescriptions: New cyclobenzaprine 10 mg tablet 10 mg PO TID PRNQty: 10 0RF Continued losartan-hydrochlorothiazide 100-25 mg tablet 1 tab PO DAILY Qty: 90 4RF testosterone cypionate [Depo-Testosterone] 200 mg/mL oil 150 mg IM Q2W Qty: 10 3RF Rx Instructions: 0.75 mL intramuscular every 2 weeks ibuprofen 600 mg tablet 600 mg PO TID PRN (Reason: pain) Qty: 60 2RF glucosamine-chondroitin 900 mg tablet 1,800 mg PO DAILY duloxetine 40 mg capsule,delayed release(DR/EC) 40 mg PO BID Qty: 180 2RF bupropion HCl [Wellbutrin XL] 150 mg tablet extended release 24 hr 150 mg PO QAM MDD 450 mg Qty: 30 2RF Rx Instructions: * Part of a dose increase * bupropion HCl [Wellbutrin XL] 300 mg tablet extended release 24 hr 300 mg PO QAM MDD 450 mg Qty: 90 2RF calcium carbonate-vitamin D3 [Caltrate with Vitamin D3] 600 mg-20 mcg (800 unit) tablet 1 tab PO DAILY Qty: 90 5RF Rx Instructions: 600mg/200 unit tablet multivitamin Tablet 1 tab PO DAILY Qty: 90 4RF ergocalciferol (vitamin D2) 1,250 mcg (50,000 unit) capsule 50,000 unit PO QWEEK Qty: 13 4RF albuterol sulfate 90 mcg/actuation HFA aerosol inhaler 2 puff inhalation Q6H PRN (Reason: shortness of breath or wheezing) Qty: 6.7 4RF potassium chloride 10 mEq capsule, extended release 20 meq PO BID Qty: 180 4RF amlodipine 10 mg tablet 10 mg PO DAILY Qty: 90 3RF (DME) needle (disp) 25 gauge 25 gauge x 1 1/2 needle See Rx Instructions .Route Qty: 10 2RF Rx Instructions: For injecting testosterone 1 needle every weeks (DME) needle (disp) 18 G 18 gauge x 1 1/4 needle See Rx Instructions .Route Qty: 10 2RF Rx Instructions: For drawing up testosterone 1 needle every weeks sildenafil 100 mg tablet 100 mg PO DAILY PRN (Reason: sexual activity) Qty: 90 3RF Rx Instructions: administer 30 minutes to 4 hours before activity; < > atorvastatin 20 mg tablet 20 mg PO QPM Qty: 90 4RF ferrous gluconate 324 mg (37.5 mg iron) tablet 324 mg PO BID Qty: 180 4RF gabapentin 300 mg capsule 300 mg PO .noon Qty: 90 0RF acetaminophen 500 mg tablet 500 mg PO Q6H PRN (Reason: pain) Qty: 60 2RF No Action (DME) syringe (disposable) 1 mL syringe See Rx Instructions .MEDSUPPLY Qty: 25 0RF Rx Instructions: use every 2 weeks; 1ml syringe; 25gx1.5 for INJ; 18gx1 to draw up medication Discharge Instructions Instructions: Muscle Strain (DC) Additional Instructions: You may take Tylenol 650 every 6 hours as needed for pain, do not exceed 3 g of Tylenol daily Range your shoulder as tolerated You may apply Lidoderm patches, these are [id number] as needed for pain Light massage You been given a prescription for Flexeril, do not combine with alcohol or drive for 8 hours after taking this medication Rest your shoulder and refrain from repetitive motion or lifting greater than 5 pounds for the next several days With worsening pain, fever, chills, shortness of breath [facility] Forms: Work Release Referrals: Kayleigh Guzman MD, [place] [Primary Care Provider] - Discharge Data Discharge Date/Time-TO BE ENTERED AT DEPARTURE: 05/28/24 20:15 HPI General Date/Time Provider Initiated Documentation: 05/28/24 18:30 . 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 He states he did not have pain initially but the next morning he woke and spasm of pain. He states it hurts to move his shoulder. He denies any significant trauma to the area. Denies chest pain or shortness of breath. Denies any headache or dizziness. Has attempted Tylenol without relief in pain. Related Data Home Medications ?Medication ?Instructions ?Recorded ?Confirmed acetaminophen 500 mg tablet 500 mg PO Q6H PRN pain #60 tabs 06/28/19 05/28/24 ibuprofen 600 mg tablet 600 mg PO TID PRN pain #60 tabs 10/23/21 05/28/24 calcium carbonate 600 mg-vitamin 1 tab PO DAILY #90 tabs 08/17/22 05/28/24 D3 20 mcg (800 unit) tablet (Caltrate with Vitamin D3) multivitamin 1 tab PO DAILY #90 tabs 08/26/22 05/28/24 ergocalciferol (vitamin D2) 1,250 50,000 unit PO QWEEK #13 caps 11/09/22 05/28/24 mcg (50,000 unit) capsule albuterol sulfate 90 mcg/actuation 2 puff inhalation Q6H PRN 11/24/22 05/28/24 aerosol inhaler shortness of breath or wheezing #6.7 grams potassium chloride 10 mEq 20 meq (2 x 10 mEq) PO BID #180 04/19/23 05/28/24 capsule,extended release caps antiarthritic combination no.2 900 1,800 mg PO DAILY 04/26/23 05/28/24 mg tablet (glucosamine-chondroitin) amlodipine 10 mg tablet 10 mg PO DAILY #90 tabs 06/21/23 05/28/24 needle (disp) 18 G 18 gauge x 1 #10 ea 08/02/23 05/28/24 1/4 needle (disp) 25 gauge 25 gauge x #10 ea 08/02/23 05/28/24 1 1/2 losartan 100 1 tab PO DAILY #90 tabs 09/16/23 05/28/24 mg-hydrochlorothiazide 25 mg tablet sildenafil 100 mg tablet 100 mg PO DAILY PRN sexual 09/20/23 05/28/24 activity #90 tabs atorvastatin 20 mg tablet 20 mg PO QPM #90 tabs 12/01/23 05/28/24 ferrous gluconate 324 mg (37.5 mg 324 mg PO BID #180 tabs 12/01/23 05/28/24 iron) tablet duloxetine 40 mg capsule,delayed 40 mg PO BID #180 caps 12/02/23 05/28/24 release testosterone cypionate 200 mg/mL 150 mg (0.75 mL) IM Q2W 02/28/24 05/28/24 intramuscular oil hypogonadism #10 mL (Depo-Testosterone) bupropion HCl 150 mg 24 hr tablet, 150 mg PO QAM #30 tabs 04/24/24 05/28/24 extended release (Wellbutrin XL) bupropion HCl 300 mg 24 hr tablet, 300 mg PO QAM #90 tabs 04/24/24 05/28/24 extended release (Wellbutrin XL) gabapentin 300 mg capsule 300 mg PO .noon #90 tab-caps 04/25/24 05/28/24 cyclobenzaprine 10 mg tablet 10 mg PO TID PRN #10 tabs 05/28/24 syringe (disposable) 1 mL #25 ea 05/29/24 Previous Rx's ?Medication ?Instructions ?Recorded acetaminophen 500 mg tablet 500 mg PO Q6H PRN pain #60 tabs 06/28/19 ibuprofen 600 mg tablet 600 mg PO TID PRN pain #60 tabs 10/23/21 calcium carbonate 600 mg-vitamin 1 tab PO DAILY #90 tabs 08/17/22 D3 20 mcg (800 unit) tablet (Caltrate with Vitamin D3) multivitamin 1 tab PO DAILY #90 tabs 08/26/22 ergocalciferol (vitamin D2) 1,250 50,000 unit PO QWEEK #13 caps 11/09/22 mcg (50,000 unit) capsule albuterol sulfate 90 mcg/actuation 2 puff inhalation Q6H PRN 11/24/22 aerosol inhaler shortness of breath or wheezing #6.7 grams potassium chloride 10 mEq 20 meq (2 x 10 mEq) PO BID #180 04/19/23 capsule,extended release caps amlodipine 10 mg tablet 10 mg PO DAILY #90 tabs 06/21/23 needle (disp) 18 G 18 gauge x 1 #10 ea 08/02/2309/02 needle (disp) 25 gauge 25 gauge x #10 ea 08/02/23 1 1 losartan 100 1 tab PO DAILY #90 tabs 09/16/23 mg-hydrochlorothiazide 25 mg tablet sildenafil 100 mg tablet 100 mg PO DAILY PRN sexual 09/20/23 activity #90 tabs atorvastatin 20 mg tablet 20 mg PO QPM #90 tabs 12/01/23 ferrous gluconate 324 mg (37.5 mg 324 mg PO BID #180 tabs 12/01/23 iron) tablet duloxetine 40 mg capsule,delayed 40 mg PO BID #180 caps 12/02/23 release testosterone cypionate 200 mg/mL 150 mg (0.75 mL) IM Q2W 02/28/24 intramuscular oil hypogonadism #10 mL (Depo-Testosterone) bupropion HCl 150 mg 24 hr tablet, 150 mg PO QAM #30 tabs 04/24/24 extended release (Wellbutrin XL) bupropion HCl 300 mg 24 hr tablet, 300 mg PO QAM #90 tabs 04/24/24 extended release (Wellbutrin XL) gabapentin 300 mg capsule 300 mg PO .noon #90 tab-caps 04/25/24 cyclobenzaprine 10 mg tablet 10 mg PO TID PRN #10 tabs 05/28/24 syringe (disposable) 1 mL #25 ea 05/29/24 Allergies Allergy/AdvReac Type Severity Reaction Status Date / Time venom-honey bee Allergy Severe Anaphylaxsi Verified 05/28/24 18:29 s clonazepam AdvReac Severe Suicidal Verified 05/28/24 18:29 Ideation lactose AdvReac Intermediate GI Upset Verified 05/28/24 18:29 Yellowjacket Allergy Severe Anaphylaxis Uncoded 05/28/24 18:29 General Stated Complaint: Orthopedic ARIS: 4 Exam Narrative Exam Narrative: Tenderness on palpation over left trapezius and deltoid region, cardiac rate rhythm regular distal pulses intact to all 4 extremities, no abdominal bruit or pulsatile mass. Course Vital Signs Vital signs: Vital Signs Temperature 37.2 C 05/28/24 18:24 Pulse 95 H 05/28/24 18:24 Respiratory Rate 14 05/28/24 18:24 Blood Pressure 132/76 05/28/24 18:24 Pulse Oximetry 98 05/28/24 18:24 Temperature 37.2 C 05/28/24 20:15 Pulse 80 05/28/24 20:15 Respiratory Rate 14 05/28/24 20:15 Respiratory Effort Normal 05/28/24 18:34 Blood Pressure 132/76 05/28/24 20:15 Pulse Oximetry 98 05/28/24 20:15 Pain Level 2 05/28/24 20:15 Procedures Other Description: Trigger point injection with approximately 15 cc of Marcaine injected into 4 sites overlying the trapezius patient tolerated without incident Medical Decision Making 63-year-old male in no acute distress, suspect musculoskeletal etiology of patient's reported left upper back pain. Reproducible tenderness. For trigger point injections were performed without incident today and patient reports marked improvement in symptoms, ambulatory with steady gait, neurovascularly intact, low suspicion clinically for cardiac etiology of patient's symptoms. No rashes or lesions noted. Flexeril as needed, return precautions reviewed and patient expressed understanding Quality:SDOH Health Related Social Needs: No Data to Display PFSH All Active Problems (Updated 05/28/24 @ 19:48 by WILLIAM Ledesma) Trapezius strain (Acute) Sleep apnea (Acute) Sessile colonic polyp (Acute ~11/02/23) Constipation (Acute) Type 2 diabetes mellitus (Acute) Thoracic back pain (Acute) Rectal bleeding (Acute) Diverticulosis of colon (Acute) Diverticula of intestine (Acute) Low testosterone in male (Acute) Erectile dysfunction (Acute) 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 (Acute) reimaged 05/22: 3.1X3.1 - unchanged Hyponatremia (Acute) Encounter for annual physical exam (Acute) Prediabetes (Acute) Urine incontinence (Acute) Generalized anxiety disorder (Acute) Cervical pain (neck) (Acute) ADD (attention deficit disorder) without hyperactivity (Chronic 05/10/17) Anxiety (Chronic 02/27/13) Depressive disorder (Chronic 06/12/13) long hx; mult meds; comm counselor intensive OP treatment [place]? Inpatient [place] MRI of head is neg. Essential hypertension (Chronic 05/26/13) Non-alcoholic fatty liver disease (Chronic) per [facility]/S in 1998 Vitamin D deficiency (Chronic 11/26/09) Medical History (Updated 05/28/24 @ 19:48 by WILLIAM Ledesma) Fever Cough Chest pain (08/17/17) Hypokalemia (08/13/17) Hyponatremia (08/13/17) Palpitations (07/29/01) Pt. states benign Polyp of colon (07/29/99) Arm paresthesia, left Polyp of colon, hyperplastic 07/29/99 Palpitations 07/29/01 ETT Holter and echo=normal Carpal tunnel syndrome 12/25/13 Hyponatremia 08/13/17 Hypokalemia 08/13/17 Chest pain, unspecified 08/17/17 Pneumonia Elevated glucose (04/13/17) A1c - 6.3 04/15 Surgical History (Updated 11/02/23 @ 13:55 by Pastora Bai) History of discectomy History of surgical procedure Status post hemorrhoidectomy Status post tonsillectomy and adenoidectomy S/P tonsillectomy and adenoidectomy H/O surgical procedure middle ear repair S/P discectomy [facility] [place] Tonsillectomy and adenoidectomy MIDDLE EAR REPAIR Hemorrhoidectomy Colonoscopy - MAC (10/2023) Family History Mother Depression Father , age 78 Alcohol abuse Heart disease Hypertension Stroke Brother Depression Social History Smoking/Tobacco Use Status: Current every day Tobacco Type: cigarettes Tobacco: How many years used: 30 Quit status: has quit before Second Hand Exposure: Yes Smoking risk assessment performed?: Yes Alcohol Intake: former Drug use: Never Substance use type: does not use Caregiver/Support person: No Household members: family Housing: house Communication Needs: Hard of Hearing Do you need help understanding health information?: Never Pets and animals: Yes Sexually active: No Do you think of yourself as: straight/heterosexual Current gender identity: male What is your relationship status?: never How often do you talk on the phone with friends or family?: once per week How often do you get together with friends or relatives?: once per week How often do you attend congregation or orthodox services?: 4 or more times per year Do you belong to any clubs or organized social groups?: no Panel score (0-1 are the most socially isolated patients): 1 Duration: < 15 minutes/day Frequency: 3-4 times per week Sandra/Protestant: Quaker Special sandra needs: No Seatbelt use: always Helmet use: Yes Helmet use: sometimes Drive intox or ride w/intox hearse driver: No Do you feel safe at home: Yes Do you feel safe in your relationship?: Yes
== END 2024-05-28 20:15 | disposition home or self-care (01) ==
PROVIDERS: Emergency Provider Physician Assistant; PCP Family Medicine
DX: S46.812A Strain of other muscles, fascia and tendons at shoulder and upper arm level, left arm, initial encounter (principal); X50.0XXA Overexertion from strenuous movement or load, initial encounter
CPT/HCPCS: 20552; J0665

== ENCOUNTER 2024-09-19 02:25 | Outpatient (CLI) | payer MEDICAID, SELFPAY ==
[2024-09-19 08:31] LABS: Hemoglobin A1C 5.8 % (<5.7)
[2024-09-19 08:46] LABS: ALT 26 U/L (16-63); AST 15 U/L (15-37); Albumin 3.8 g/dL (3.4-5.0); Alkaline Phosphatase 68 U/L (46-116); Anion Gap 5.5 mmol/L (3-11); BUN 12 mg/dL (7-18); Bilirubin, Total 0.33 mg/dL (0.2-1.0); CO2 35.5 mmol/L (21.0-32.0); CREATININE 1.4 mg/dL (0.70-1.30); Calculated LDL 44 mg/dL (<100); Chloride 103 mmol/L (98-107); Cholesterol 113 mg/dL (<200); Estimated GFR 56.48 (mL/min/1.73m2); Glucose 127 mg/dL (74-106); HDL Cholesterol 50 mg/dL (40-60); Potassium 3.2 mmol/L (3.5-5.1); Sodium 144 mmol/L (136-145); Total Protein 7.2 g/dL (6.4-8.2); Triglyceride 99 mg/dL (<150)
[2024-09-25 14:42] LABS: Testosterone, Total 1080 ng/dL (240-950)
== END 2024-09-19 02:26 | disposition home or self-care (01) ==
PROVIDERS: PCP Family Medicine; Visit Provider Nurse Practitioner Gerontology
DX: I10 Essential (primary) hypertension (principal); E11.9 Type 2 diabetes mellitus without complications; E29.1 Testicular hypofunction
CPT/HCPCS: 36415; 80053; 80061; 84403; 83036

== ENCOUNTER 2024-10-04 15:34 | Outpatient (CLI) | payer BC, MEDICAID, SELFPAY ==
--- NOTE | 2024-10-04 14:15 | DI.RAD_ITS ---
Exam(s) XR SHOULDER LT COMPLETE 2+V EXAM: XR SHOULDER LT COMPLETE 2+V CLINICAL HISTORY: left shoulder pain. TECHNIQUE: 2D digital imaging was performed of the left shoulder. Two images were obtained. Axilla ry and Grashey views were obtained. COMPARISON: CT CT UPPER EXTREMITY LT WO from 07/12/2024 FINDINGS: BONES: No acute fracture is present. No bony destructive lesion is seen. JOINTS: No dislocation present. The glenohumeral and acromioclavicular joints are well maintained. SOFT TISSUE: Normal. IMPRESSION: No acute abnormality. DATA REPOSITORY: RADIATION DOSE DELIVERED:
== END 2024-10-04 15:35 | disposition home or self-care (01) ==
LOC: DIORS 15:35
PROVIDERS: PCP Family Medicine; Visit Provider Physician Assistant
DX: M25.512 Pain in left shoulder (principal)
CPT/HCPCS: 73030

== ENCOUNTER 2024-10-09 12:34 | Outpatient (REF) | payer BC, MEDICAID, SELFPAY | END 2024-10-09 12:35 | disposition home or self-care (01) | LOC: LBN 12:34 | PROVIDERS: PCP Family Medicine; Visit Provider Physician Assistant | DX: L98.9 Disorder of the skin and subcutaneous tissue, unspecified (principal); L72.3 Sebaceous cyst | CPT/HCPCS: 87070; 87205 ==

== ENCOUNTER 2024-10-24 01:40 | Outpatient (CLI) | payer BC, MEDICAID, SELFPAY ==
--- NOTE | 2024-10-24 07:30 | DI.MRI_ITS ---
Exam(s) MR UPPER JOINT LT WO EXAM: MR UPPER JOINT LT WO CLINICAL HISTORY: L SHOULDER PAIN,LT ROTATOR CUFF TEAR,M75.102. TECHNIQUE: Multiplanar multisequence MRI was performed. COMPARISON: CT CT UPPER EXTREMITY LT WO from 07/12/2024 CR XR SHOULDER LT COMPLETE 2+V from 10/04/2024 FINDINGS: BONES: There is no fracture or contusion pattern. JOINTS: Mild degenerative changes are seen at the acromioclavicular joint. The glenohumeral joint is normal. TENDONS: Supraspinatus: There is tendinosis of the supraspinatus tendon without evidence of a tear. Infraspinatus: Unremarkable. Subscapularis: There is tendinosis of the subscapularis tendon. There is mild hyperintense signal se en at the insertion site which may represent a partial tear. [place]: Unremarkable. Biceps and [place]: Unremarkable. MUSCLES: Unremarkable. GLENOID LABRUM: There is mild intermediate signal and irregularity of the posterior superior labrum w hich may represent degeneration and/or tear. There is a small amount of hyperintense signal adjacent to the labrum in this area. SOFT TISSUES: Unremarkable. LIGAMENTS: Unremarkable. OTHER: Subacromial and subdeltoid bursae are unremarkable. IMPRESSION: 1. Tendinosis of the supraspinatus and subscapularis tendons. There is mild hyperintense signal seen in the subscapularis tendon at its insertion site which may represent a partial tear. 2. Irregularity and intermediate signal seen in the posterior superior labrum which may represent deg eneration. Tear cannot be excluded. There is a small amount of hyperintense signal seen adjacent to the labrum in this area. 3. Mild degenerative changes seen at the acromioclavicular joint. DATA REPOSITORY:
== END 2024-10-24 02:00 ==
PROVIDERS: PCP Family Medicine; Visit Provider Student in an Organized Health Care Education/Training Program
DX: M75.32 Calcific tendinitis of left shoulder (principal); M75.102 Unspecified rotator cuff tear or rupture of left shoulder, not specified as traumatic
CPT/HCPCS: 73221

== ENCOUNTER 2024-12-07 11:01 | Outpatient (REF) | payer BC, SELFPAY ==
--- NOTE | 2024-12-07 11:01 | SKI_PTH ---
PATIENT: Storm Mobley LOC: [facility] U#:[id number] AGE/SX: 64/M ROOM: RE12/07/[address]: WILLIAM Leyva : 1960 BED: DIS: 12/07/2024 SPEC #: [id number] RECD: 12/07/24 16:59 STATUS: NANDINI REArsenio #: [id number] BERNARDO: 12/07/24 11:[address]: Twila Pan DEPT: Surgical Specimen RECD BY: Kelley Wilson ENTERED: 12/07/24 16:59 SP TYPE: HECTOR [place] DR: Kayleigh Guzman MD, DC Tissues: 1 - SKIN BIOPSY(SHAVE/PUNCH) Procedures: GROSS AND MICRO LEVEL 3 Comments: [id number]
== END 2024-12-07 11:02 | disposition home or self-care (01) ==
LOC: LBN 11:01
PROVIDERS: PCP Family Medicine; Visit Provider Physical Therapy Assistant
DX: L72.0 Epidermal cyst (principal)
CPT/HCPCS: 88304; 88305

== ENCOUNTER 2024-12-20 03:27 | Outpatient (CLI) | payer BC, SELFPAY ==
[2024-12-25 14:57] LABS: Testosterone, Total 125 ng/dL (240-950)
== END 2024-12-20 03:28 | disposition home or self-care (01) ==
LOC: LBO 03:28
PROVIDERS: PCP Family Medicine; Visit Provider Nurse Practitioner Gerontology
DX: E29.1 Testicular hypofunction (principal)
CPT/HCPCS: 36415; 84403

== ENCOUNTER 2025-01-11 01:10 | Outpatient (CLI) | payer BC, MEDICAID, SELFPAY ==
--- NOTE | 2025-01-11 15:14 | DI.RAD_ITS ---
Exam(s) RF JOINT INJ. FLUORO GUID RAD EXAM: RF JOINT INJ. FLUORO GUID RAD CLINICAL HISTORY: L SHOULDER PAIN S43.432A LESION LEFT SHOULDER M75.102 ROTATOR CUFF TEAR. The Kaylin ent has had persistent left shoulder pain. Noninvasive measures have been tried. To serve as both d iagnostic and therapeutic, an injection under fluoroscopy was recommended. The risks of the procedur e were discussed with their Orthopedic provider and the patient elected to proceed. TECHNIQUE: 2D and realtime digital imaging was performed. CONTRAST MATERIAL: Water soluble contrast was utilized. COMPARISON: No exams were available for comparison FINDINGS: The Patient was greeted in the fluoroscopy room. The correct side was identified and the consent was reviewed with the patient and was signed. The patient was properly positioned on the fluoroscopy ta ble. The left shoulderwas then prepped and draped. The left shoulder injection starting point was i dentified by the bony landmarks and fluoroscopy. The skin and soft tissue in the tract of the inject ion was anesthetized with 1% Bupivacaine. A spinal needle was then inserted into the left shoulder j oint at the level of the glenohumeral joint under fluoroscopic guidance. A small amount of Omnipaque solution was injected to confirm intraarticular placement. Once confirmed, the left shoulder was in jected with 5cc of a solution containing 0.5% Bupivacaiine and 40 mg of Depo-Medrol. A bandaid was p laced on the injection site. The patient tolerated the procedure well and left the department in goo d condition. IMPRESSION: Successful left shoulder injection. RADIATION DOSE DELIVERED: Shanaer=3.49 mGy
[2025-01-11] MEDS: Omnipaque 300 MG/ML 10 ML BTL IJ (15:19)
[2025-01-11] MEDS: Bupivacaine 0.5% Pres-Free 10 ML VIAL IJ (15:19)
[2025-01-11] MEDS: methylPREDNISolone ACETATE 40 MG/ML VIAL IM (15:20)
== END 2025-01-11 01:30 ==
PROVIDERS: PCP Family Medicine; Visit Provider Student in an Organized Health Care Education/Training Program
DX: S43.432A Superior glenoid labrum lesion of left shoulder, initial encounter (principal); M75.102 Unspecified rotator cuff tear or rupture of left shoulder, not specified as traumatic; M25.512 Pain in left shoulder
CPT/HCPCS: 20610; 77002; J0665; J1010

== ENCOUNTER 2025-04-05 04:40 | Outpatient (CLI) | payer MEDICAID, SELFPAY | END 2025-04-05 04:41 | disposition home or self-care (01) | LOC: LBO 04:40 | PROVIDERS: PCP Family Medicine; Visit Provider Nurse Practitioner Gerontology | DX: E29.1 Testicular hypofunction (principal) | CPT/HCPCS: 36415; 84403 ==

== ENCOUNTER 2025-06-21 10:25 | Day surgery (SDC) | payer BC, SELFPAY ==
--- NOTE | 2025-06-21 07:25 | PDOC.DSDIS_ITS ---
Discharge Plan Disposition Patient Disposition: Home Condition: Stable Discharge Details Attending Provider: Ganesh Cameron Primary Care Provider: Kayleigh Guzman Home Meds and New Rx's Prescriptions: Continued ibuprofen 600 mg tablet 600 mg PO TID PRN (Reason: pain) Qty: 60 2RF glucosamine-chondroitin 900 mg tablet 1,800 mg PO DAILY testosterone cypionate [Depo-Testosterone] 200 mg/mL oil 175 mg IM Q2W Qty: 10 3RF Rx Instructions: 0.875ml intramuscular every 2 weeks trazodone 100 mg tablet See Rx Instructions PO QHS PRN (Reason: sleep) Qty: 90 3RF Rx Instructions: Take 1/2 (half) - 1 tab, orally every day at bedtime PRN; bupropion HCl [Wellbutrin XL] 300 mg tablet extended release 24 hr 300 mg PO QAM MDD 450 mg Qty: 90 3RF bupropion HCl [Wellbutrin XL] 150 mg tablet extended release 24 hr 150 mg PO QAM MDD 450 mg Qty: 90 3RF Rx Instructions: * Part of a dose increase * duloxetine 40 mg capsule,delayed release(DR/EC) 40 mg PO BID Qty: 180 3RF lamotrigine 100 mg tablet 150 mg PO DAILY Qty: 135 3RF calcium carbonate-vitamin D3 [Caltrate with Vitamin D3] 600 mg-20 mcg (800 unit) tablet 1 tab PO DAILY Qty: 90 5RF Rx Instructions: 600mg/200 unit tablet multivitamin Tablet 1 tab PO DAILY Qty: 90 4RF ergocalciferol (vitamin D2) 1,250 mcg (50,000 unit) capsule 50,000 unit PO QWEEK Qty: 13 4RF (DME) needle (disp) 25 gauge 25 gauge x 1 1/2 needle See Rx Instructions .Route Qty: 10 2RF Rx Instructions: For injecting testosterone 1 needle every weeks (DME) needle (disp) 18 G 18 gauge x 1 1/4 needle See Rx Instructions .Route Qty: 10 2RF Rx Instructions: For drawing up testosterone 1 needle every weeks losartan-hydrochlorothiazide 100-25 mg tablet 1 tab PO DAILY Qty: 90 4RF albuterol sulfate 90 mcg/actuation HFA aerosol inhaler 2 puff inhalation Q6H PRN (Reason: shortness of breath or wheezing) Qty: 6.7 4RF (DME) syringe (disposable) 1 mL syringe See Rx Instructions .MEDSUPPLY Qty: 25 0RF Rx Instructions: use every 2 weeks; 1ml syringe; 25gx1.5 for INJ; 18gx1 to draw up medication gabapentin 300 mg capsule 300 mg PO .noon Qty: 90 4RF potassium chloride 20 mEq tablet extended release 20 meq PO TID Qty: 270 5RF sildenafil 100 mg tablet 100 mg PO DAILY PRN (Reason: sexual activity) Qty: 90 3RF Rx Instructions: administer 30 minutes to 4 hours before activity; <[email or web address]> Senna Plus 8.6-50 mg capsule 1 tab-cap PO BID PRN (Reason: constipation) Qty: 60 0RF atorvastatin 20 mg tablet 20 mg PO QPM Qty: 90 4RF ferrous gluconate 324 mg (37.5 mg iron) tablet 324 mg PO BID Qty: 180 4RF amlodipine 10 mg tablet 10 mg PO DAILY Qty: 90 3RF Zepbound 2.5 mg/0.5 mL pen injector 2.5 mg subcut QWEEK Qty: 2 1RF Rx Instructions: for 4 weeks Discharge Instructions Additional Instructions: Surgery: [Right] shoulder arthroscopy with [rotator cuff repair, biceps tenodesis, extensive debridement, and subacromial decompression.] Activity: [For 6 weeks,] you should keep your arm at your side in a neutral position at all times except for physical therapy. Do not try to lift or raise your arm using your own muscles. You should use the sling whenever you are out of the house. At home it is best to remove the sling and rest the arm on a pillow at your side or support the operative side with your other hand. You may allow the arm to dangle at your side. A physical therapy prescription will be sent electronically to begin in about 3 weeks. [You should gradually increase range of motion motion and use of your shoulder. You may use your shoulder for all regular activities while protecting biceps repair. Avoid any weighted elbow flexion or resisted supination for 6-8 weeks. No heavy lifting, reaching overhead, or lifting away from body for approximately 2-3 months. You may use the sling whenever you are out of the house for a few weeks. At home it is best to remove the sling and rest the arm on a pillow at your side or support the operative side with your other hand. A physical therapy prescription will be sent electronically to start in about 2 weeks.] Please continue regular use of your CPAP. Prescriptions: Naproxen 250 mg take 1-2 every 12 hours with a meal as needed for moderate pain Oxycodone 5 mg take 1-2 every 4-6 hours as needed for severe pain You may use wjye-fvq-ymannat Tylenol (acetaminophen) as needed for mild pain. These pain medications may be taken all at once or in different combinations as needed. Also, recommend Colace (docusate) as a stool softener as surgery and pain medicine cause constipation. You may try whut-dnx-ghxwphb diphenhydramine (Benadryl) 25-50 mg nightly as a sleep aid Dressings: Remove shoulder bandage after 3 days. Leave the sticky Steri-Strips in place until they fall off or remove them after you shower. Cover the incisi ons with Band-Aids or leave them open to air. [The biceps bandage (inside upper arm) is glued on separately. You may leave this one on a few days longer if it is difficult to remove. There is also glue underneath this bandage that can be left in place until it peels off.] You may shower after 5 days. Follow-up: 10-[address] Cameron You may take off the leg compression stockings this evening at home. You may also leave them on a few days longer if you have a history of leg swelling or edema. Let us know right away if you develop any redness, drainage, fevers, chest pain, or trouble breathing. Do not drink alcohol or drive for at least 24 hours after anesthesia. Please call the office during business hours with any questions or concerns. Discharge Orders Discharge Orders: Discharge Order (Routine); Ordered 06/21/25 Ordered By: Roni Hogue
== END 2025-06-21 10:26 | disposition home or self-care (01) ==
LOC: SUR 10:26
PROVIDERS: PCP Family Medicine; Visit Provider Student in an Organized Health Care Education/Training Program
DX: Z53.9 Procedure and treatment not carried out, unspecified reason (principal); M75.102 Unspecified rotator cuff tear or rupture of left shoulder, not specified as traumatic
CPT/HCPCS: J0131; J1885; J2003; J2250; J2371; J2405; J2704

== ENCOUNTER 2025-07-05 08:38 | Day surgery (SDC) | payer BC, SELFPAY ==
[2025-07-05] VITALS (23 sets, daily range): BP systolic 111–140; BP diastolic 65–91; PULSE 55–62; RESP 12–22; TEMP 36.8–37.2; O2SAT 93–97; BMI 41.5
--- NOTE | 2025-07-05 07:18 | W.PM.DSUDISC ---
Date of service: 07/05/25 Discharge Plan Disposition Patient Disposition: Home Condition: Stable Discharge Details Attending Provider: Ganesh Cameron Primary Care Provider: Kayleigh Guzman Home Meds and New Rx's Prescriptions: New naproxen 250 mg tablet 250 - 500 mg PO BID PRN (Reason: Moderate pain) Qty: 40 0RF oxycodone 5 mg tablet 5 - 10 mg PO Q4H PRN (Reason: Moderate to severe pain) Qty: 18 0RF Continued ibuprofen 600 mg tablet 600 mg PO TID PRN (Reason: pain) Qty: 60 2RF glucosamine-chondroitin 900 mg tablet 1,800 mg PO DAILY testosterone cypionate [Depo-Testosterone] 200 mg/mL oil 175 mg IM Q2W Qty: 10 3RF Rx Instructions: 0.875ml intramuscular every 2 weeks trazodone 100 mg tablet See Rx Instructions PO QHS PRN (Reason: sleep) Qty: 90 3RF Rx Instructions: Take 1/2 (half) - 1 tab, orally every day at bedtime PRN; bupropion HCl [Wellbutrin XL] 300 mg tablet extended release 24 hr 300 mg PO QAM MDD 450 mg Qty: 90 3RF bupropion HCl [Wellbutrin XL] 150 mg tablet extended release 24 hr 150 mg PO QAM MDD 450 mg Qty: 90 3RF Rx Instructions: * Part of a dose increase * duloxetine 40 mg capsule,delayed release(DR/EC) 40 mg PO BID Qty: 180 3RF lamotrigine 100 mg tablet 150 mg PO DAILY Qty: 135 3RF calcium carbonate-vitamin D3 [Caltrate with Vitamin D3] 600 mg-20 mcg (800 unit) tablet 1 tab PO DAILY Qty: 90 5RF Rx Instructions: 600mg/200 unit tablet multivitamin Tablet 1 tab PO DAILY Qty: 90 4RF ergocalciferol (vitamin D2) 1,250 mcg (50,000 unit) capsule 50,000 unit PO QWEEK Qty: 13 4RF (DME) needle (disp) 25 gauge 25 gauge x 1 1/2 needle See Rx Instructions .Route Qty: 10 2RF Rx Instructions: For injecting testosterone 1 needle every weeks (DME) needle (disp) 18 G 18 gauge x 1 1/4 needle See Rx Instructions .Route Qty: 10 2RF Rx Instructions: For drawing up testosterone 1 needle every weeks losartan-hydrochlorothiazide 100-25 mg tablet 1 tab PO DAILY Qty: 90 4RF albuterol sulfate 90 mcg/actuation HFA aerosol inhaler 2 puff inhalation Q6H PRN (Reason: shortness of breath or wheezing) Qty: 6.7 4RF (DME) syringe (disposable) 1 mL syringe See Rx Instructions .MEDSUPPLY Qty: 25 0RF Rx Instructions: use every 2 weeks; 1ml syringe; 25gx1.5 for INJ; 18gx1 to draw up medication gabapentin 300 mg capsule 300 mg PO .noon Qty: 90 4RF potassium chloride 20 mEq tablet extended release 20 meq PO TID Qty: 270 5RF sildenafil 100 mg tablet 100 mg PO DAILY PRN (Reason: sexual activity) Qty: 90 3RF Rx Instructions: administer 30 minutes to 4 hours before activity; <[email or web address]> Senna Plus 8.6-50 mg capsule 1 tab-cap PO BID PRN (Reason: constipation) Qty: 60 0RF atorvastatin 20 mg tablet 20 mg PO QPM Qty: 90 4RF ferrous gluconate 324 mg (37.5 mg iron) tablet 324 mg PO BID Qty: 180 4RF amlodipine 10 mg tablet 10 mg PO DAILY Qty: 90 3RF Zepbound 2.5 mg/0.5 mL pen injector 2.5 mg subcut QWEEK Qty: 2 1RF Rx Instructions: for 4 weeks Discharge Instructions Additional Instructions: Surgery: Left shoulder arthroscopy with extensive debridement, biceps tenodesis, subacromial decompression, and distal clavicle excision 07/05/25 Activity: You should gradually increase range of motion motion and use of your shoulder. You may use your shoulder for all regular activities while protecting biceps repair. Avoid any weighted elbow flexion or resisted supination for 6-8 weeks. No heavy lifting, reaching overhead, or lifting away from body for approximately 2-3 months. You may use the sling whenever you are out of the house for a few weeks. At home it is best to remove the sling and rest the arm on a pillow at your side or support the operative side with your other hand. A physical therapy prescription will be sent electronically to start in about 3 weeks. Be sure to use your CPAP machine anytime you are resting, napping, or planning to sleep until you have completely recovered from the effects of anesthesia and are no longer taking any narcotic medications. Prescriptions: Naproxen 250 mg take 1-2 every 12 hours with a meal as needed for moderate pain Oxycodone 5 mg take 1-2 every 4-6 hours as needed for severe pain You may use ufrh-uko-okbpfzs Tylenol (acetaminophen) as needed for mild pain. These pain medications may be taken all at once or in different combinations as needed. Also, recommend Colace (docusate) as a stool softener as surgery and pain medicine cause constipation. You may try qfrh-gnd-dszmnqn diphenhydramine (Benadryl) 25-50 mg nightly as a sleep aid Dressings: Remove shoulder bandage after 3 days. Leave the sticky Steri-Strips in place until they fall off or remove them after you shower. Cover the incisions with Band-Aids or leave them open to air. You may shower after 5 days. Follow-up: 10-[address] Cameron You may take off the leg compression stockings this evening at home. You may also leave them on a few days longer if you have a history of leg swelling or edema. Let us know right away if you develop any redness, drainage, fevers, chest pain, or trouble breathing. Do not drink alcohol or drive for at least 24 hours after anesthesia. Please call the office during business hours with any questions or concerns. Stand Alone Forms: Portal Information Discharge Orders Discharge Orders: Discharge Order (Routine); Ordered 07/05/25 Ordered By: Roni Hogue DS: Diagnosis Discharge Diagnosis (1) Tear of left glenoid labrum: Status: Acute (2) Left rotator cuff tear: Status: Acute (3) Chondromalacia, left shoulder: Status: Acute (4) Bursitis of left shoulder: Status: Acute (5) Arthritis of left acromioclavicular joint: Status: Acute
--- NOTE | 2025-07-05 07:41 | W.PM.OP ---
Operative Note Operative Note PRE-OP DIAGNOSIS: Left: 1. Partial rotator cuff tear 2. LHB tendinopathy/ SLAP tear 3. Bursitis 4. AC joint arthritis POST-OP DIAGNOSIS: same PROCEDURE: Left: 1. Arthroscopic biceps tenodesis, CPT# 78237. This involved arthroscopically suturing and reattaching the long head of the biceps tendon to the proximal humerus at the superior margin of the bicipital groove with a screw at the correct tension. 2. Extensive debridement, CPT# 96763. This involved using arthroscopic hand instruments, power instruments, and radiofrequency instruments to release the long head of the biceps tendon and debride areas of anterior labral tearing, SLAP tearing, rotator interval synovitis, and mild partial articular supraspinatus tearing working within the glenohumeral joint anteriorly, superiorly and posteriorly. 3. Subacromial decompression with partial acromioplasty, CPT# 03958. This involved using arthroscopic power instruments and a radiofrequency wand to complete a bursectomy and smooth the undersurface of the acromion. 4. Arthroscopic distal clavicle excision, CPT# 93640. This involved arthroscopically exposing the underside of the acromioclavicular joint, smoothing out bone spurs, and removing approximately a few millimeters of the distal clavicle and medial acromion so there was no bone left engaging the acromion. The business office assistant was medically required in order to help assist in techniques above, which require positioning the arm, holding the arthroscope, and manipulating multiple instruments and sutures at the same time. This cannot be done without the help of an experienced business office assistant. SURGEON: Ganesh Cameron SALES MERCH[employer]ISE ASSOCIATE: Roni Hogue ANESTHESIA TYPE: Local By Surgeon, General LMA/ETT and Primary Nerve Block Refer to Anesthesia Record ESTIMATED BLOOD LOSS: 20 PATHOLOGY: none sent COMPLICATIONS: None Patient was transported to: PACU Patient's condition: stable Implants: Arthrex: 4.75mm SwiveLocks x 1 Indications: The patient was diagnosed with the above conditions and appropriately indicated for surgical intervention. Please see complete medical record for details. Findings: Exam under anesthesia: Full range of motion, no instability Glenohumeral joint: Only mild chondromalacia, relatively mild degenerative anterior and posterior superior labral tearing. Unstable biceps anchor SLAP tear with thinning of the tendon separate from superior labrum displaceable small bucket-handle type flap. Intact subscapularis. Very mild undersurface articular supraspinatus fraying with minimal to no footprint involvement. Subacromial space: Moderate bursitis. Significant impinging undersurface acromion and distal clavicle on each other and the bursal rotator cuff. Hemorrhagic injection throughout including the rotator cuff, but rotator of structure intact. Procedure Description: In the operating room, general anesthesia was induced. Bilateral shoulders were examined. The patient was positioned in the beachchair position. All bony prominences were well-padded. Preoperative antibiotics were administered. The shoulder was prepped and draped in the usual sterile fashion. The correct patient, procedure, and side of the procedure were all verified prior to incision. Starting through the posterior portal a standard complete diagnostic arthroscopy was performed of the glenohumeral joint including inspection of the long head of the biceps, anterior and superior labrum, subscapularis tendon, supraspinatus and infraspinatus tendons, and axillary recess. The glenoid and humeral head cartilage as well as the posterior labrum were inspected from an anterior viewing portal. Significant findings and interventions noted above including debridement of the labrum, SLAP tear, articular rotator cuff tearing, and minimally some cartilage/chondromalacia An all-arthroscopic suprapectoral biceps tenodesis was performed through an anterior portal using a Loop N Tack method with a SutureTape FiberLink cinched around and through the tendon. The biceps was tenotomized from the labrum and fixated with a suture anchor at the superior margin of the bicipital groove. An extra fiber loop was used through the tendon given the large patient stature and tendon size. Additionally, the knotless repair mechanism from the suture anchor was used to shuttle and cinch and additional security to the tenodesis. Starting through the posterior portal, the arthroscope was directed into the subacromial space. A lateral 50 yard line lateral portal was created. A combination of power instruments and a radiofrequency ablator were used to debride bursitis anteriorly, posteriorly, and laterally as well as expose and smooth bone spurring on the undersurface of the acromion. The coracoacromial ligament was partially released. The bursectomy was completed viewing laterally and working from posteriorly and the rotator cuff was thoroughly inspected with findings noted above. Visualization was challenged by hemorrhagic injection and bleeding from multiple structures probably also related to some blood pressure/hypertension. The anterior portal was redirected towards the undersurface of the AC joint. A shaver and electrocautery device were used to clear soft tissue from the undersurface of the AC joint. The distalmost few millimeters of the distal clavicle was then removed and smoothed as was the corresponding medial margin of the acromion. Care was taken to alternate working and viewing portals while addressing hemostasis to ensure the appropriate amount of bone was removed and none was left engaging at the joint or on the bursal rotator. The shoulder was drained of arthroscopic fluid. All portal sites were copiously irrigated. These incisions were closed using 3-0 Monocryl in a buried fashion and then covered with Mastisol, Steri-Strips, Xeroform, dry gauze, and ABDs. The dressings were covered and secured with Medipore tape. The operative extremity was placed into a sling for immobilization. The patient awoke from anesthesia without complication and was transferred to the recovery room in a stable condition. Date of Procedure: 07/05/25
[2025-07-05] MEDS: Lactated Ringers 1,000 ML 30 ML IV (09:50)
--- NOTE | 2025-07-05 10:12 | ANES.PREOP_ITS ---
General Info Date of Service Date Performed: 07/05/25 Height: 5 ft 10 in Weight: 131.4 kg Body Mass Index (BMI): 41.5 Surgical Procedure: Operation Date: 07/05/25 10:55 Proposed Procedure Side Surgeon p Shoulder Possible Rotator Cuff Arthroscopic w/Extensive Debridement, Biceps Tenodesis, Subacromial Decompression, Distal Clavicle Excision Left Ganesh Cameron MD Meds Allergies and Home Medications Allergies Allergy/AdvReac Type Severity Reaction Status Date / Time venom-honey bee Allergy Severe Anaphylaxsi Verified 07/05/25 09:04 s clonazepam AdvReac Severe Suicidal Verified 07/05/25 09:04 Ideation lactose AdvReac Intermediate GI Upset Verified 07/05/25 09:04 Home Medication Medication Instructions Recorded ibuprofen 600 mg tablet 600 mg PO TID PRN pain #60 t abs 10/23/21 calcium 600 mg (as 1 tab PO DAILY #90 tabs 07/30 05/21 carbonate)-vitamin D3 20 mcg (800 unit) tablet (Caltrate with Vitamin D3) multivitamin 1 tab PO DAILY #90 tabs 07/31 04/20 ergocalciferol (vitamin D2) 1,250 50,000 unit PO QWEEK #13 caps 11/09/22 mcg (50,000 unit) capsule antiarthritic combination no.2 900 1,800 mg PO DAILY 0 04/26/23 mg tablet (glucosamine-chondroitin) needle (disp) 18 G 18 gauge x 1 #10 ea 08/02/2309/02 needle (disp) 25 gauge 25 gauge x #10 ea 08/02/23 1 08/31 losartan 100 1 tab PO DAILY #90 tabs 110 03/22 mg-hydrochlorothiazide 25 mg tablet albuterol sulfate 90 mcg/actuation 2 puff inhalation Q 6H PRN 07/31/24 aerosol inhaler shortness of breath or wheez ing #6.7 grams trazodone 100 mg tablet See Rx Instructions PO QHS P RN 08/21/24 sleep #90 tabs syringe (disposable) 1 mL #25 ea 09/06/24 gabapentin 300 mg capsule 300 mg PO .noon #90 tab-caps 09/07/24 potassium chloride 20 mEq 20 meq PO TID #270 tabs 0209/23 tablet,extended release bupropion HCl 150 mg 24 hr tablet, 150 mg PO QAM #90 t abs 11/02/24 extended release (Wellbutrin XL) bupropion HCl 300 mg 24 hr tablet, 300 mg PO QAM #90 t abs 11/02/24 extended release (Wellbutrin XL) duloxetine 40 mg capsule,delayed 40 mg PO BID #180 cap s 11/02/24 release sildenafil 100 mg tablet 100 mg PO DAILY PRN sexual 0 01/03/25 activity #90 tabs sennosides 8.6 mg-docusate sodium 1 tab-cap PO BID PRN constipation 01/04/25 50 mg capsule (Senna Plus) #60 caps atorvastatin 20 mg tablet 20 mg PO QPM #90 tabs testosterone cypionate 200 mg/mL 175 mg (0.875 mL) IM Q2W 04/12/25 intramuscular oil hypogonadism #10 mL (Depo-Testosterone) lamotrigine 100 mg tablet 150 mg (1.5 x 100 mg) PO WILLARD LY 04/19/25 #135 tabs ferrous gluconate 324 mg (37.5 mg 324 mg PO BID #180 t abs 06/04/25 iron) tablet amlodipine 10 mg tablet 10 mg PO DAILY #90 tabs 05/30 11/21 tirzepatide (weight loss) 2.5 2.5 mg (0.5 mL) subcut Q WEEK #2 mL 06/13/25 mg/0.5 mL subcutaneous pen injector (Zepbound) naproxen 250 mg tablet 250 - 500 mg (1 - 2 x 250 mg ) PO 07/05/25 BID PRN Moderate pain #40 tabs oxycodone 5 mg tablet 5 - 10 mg (1 - 2 x 5 mg) PO Q4H 07/05/25 PRN Moderate to severe pain #18 tabs Current Visit Medications: Current Medications Generic Name Dose Route Start Last Admin Trade Name Freq PRN Reason Stop Dose Admin Ringer's Solution 1,000 mls @ 30 mls/hr 07/05/25 06:00 07/05/25 09:50 IV 07/05/25 23:59 30 mls/hr INFUSION JAGUAR Administration Cefazolin Sodium 3,000 mg/ 100 mls @ 200 mls/hr 07/05/25 06:00 Sodium Chloride IV 07/05/25 23:59 PREOP JAGUAR Tranexamic Acid/Sodium Chloride 1,000 mg in 100 mls @ 600 mls/hr 07/05/25 06:00 IVPB 07/05/25 23:59 PREOP JAGUAR IV Miscellaneous Supplies 1 each 07/05/25 06:00 Iv Access IV 07/05/25 23:59 DIRECTED JAGUAR Oxycodone HCl 0 mg 07/05/25 07:22 Oxycodone 5 Mg Tab PO 08/04/25 07:21 Q3H PRN PRN Pain Sodium Chloride 0 ml 07/05/25 06:00 Normal Saline Flush 10 Ml Syr IV 07/05/25 23:59 PRN PRN Sodium Chloride 0 ml 07/05/25 06:00 Normal Saline 10 Ml Vial IJ 07/05/25 23:59 DIRECTED PRN Sterile Water 0 ml 07/05/25 06:00 Water,Injection,Sterile 10 Ml Vial IJ 07/05/25 23:59 DIRECTED PRN PFSH Active Problems Active Problems: Problem Status Onset Code Arthritis of left acromioclavicular joint Acute M19.012 Bursitis of left shoulder Acute M75.52 Chondromalacia, left shoulder Acute M94.212 Tear of left glenoid labrum Acute S43.432A Sebaceous cyst Acute L72.3 Left rotator cuff tear Acute 04/25/24 M75.102 Insomnia Acute G47.00 Left shoulder pain Acute M25.512 Sleep apnea Acute G47.30 Sessile colonic polyp Acute ~11/02/23 K63.5 Constipation Acute K59.00 Type 2 diabetes mellitus Acute E11.9 Thoracic back pain Acute M54.6 Rectal bleeding Acute K62.5 Diverticulosis of colon Acute K57.30 Diverticula of intestine Acute K57.30 Low testosterone in male Acute R79.89 Erectile dysfunction Acute N52.9 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 Acute E27.8 Hyponatremia Acute E87.1 Encounter for annual physical exam Acute Z00.00 Prediabetes Acute R73.03 Urine incontinence Acute R32 Generalized anxiety disorder Acute F41.1 Cervical pain (neck) Acute M54.2 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 states benign Polyp of colon (07/29/99) Arm paresthesia, left Polyp of colon, hyperplastic 07/29/99 Palpitations 07/29/01 ETT Holter and echo=normal Carpal tunnel syndrome 12/25/13 Hyponatremia 08/13/17 Hypokalemia 08/13/17 Chest pain, unspecified 08/17/17 Pneumonia Elevated glucose (04/13/17) A1c - 6.3 04/15 Medical History Comments:: 11/02/23: pt reports he has anxiety related chest pain, last experienced in February 2023 when his mom passed Surgical History Surgical History History of discectomy History of surgical procedure Status post hemorrhoidectomy Status post tonsillectomy and adenoidectomy S/P tonsillectomy and adenoidectomy H/O surgical procedure middle ear repair S/P discectomy [facility] [place] Tonsillectomy and adenoidectomy MIDDLE EAR REPAIR Hemorrhoidectomy Colonoscopy - MAC (10/2023) Tobacco Smoking/Tobacco Use Status: Current every day Tobacco Type: cigarettes Smoking cigarettes per day: 10 Passive smoking exposure: Yes Second hand exposure: Yes Alcohol Alcohol Intake: former Year quit: 1994 Substance Use Substance use: Never Substance use type: does not use Vital Signs and Lab Results Vital Signs Most Recent Vital Signs in EMR: Most Recent Vital Signs Temp Pulse Resp BP Pulse Ox 37.2 C 59 L 17 139/71 97 07/05/25 09:00 07/05/25 09:00 07/05/25 09:00 07/05/25 09:00 07/05/25 09:00 Imaging and Studies Imaging and Studies Study information below may be from another EMR and interpreted by another provider. Please see original notes in EMR for more complete details. Stress Test Summary: 08/16/2017: Impressions: Normal study after maximal exercise. Summary: 1. Stress ECG conclusions: The stress ECG is negative. Padron treadmill score: 3. This score predicts a moderate risk of cardiac events. Recommendations: Can consider perfusion imaging if symptoms persist or clinical suspicion warrants. Anesthesia Assessment and Plan Anesthesia History Personal History: No History of Anesthesia Complications Family History: No Family History of Anesthesia Complications Exercise Tolerance Exercise Tolerance: Metabolic Equivalents>4 Pertinent Negatives Pertinent Negatives: No Symptoms of GERD and No History of CVA/TIA Cardiac & Pulmonary Exam Cardiac Exam: Normal S1/S2 Heart Sounds Pulmonary Exam: Clear Bilateral Breath Sounds and Active Dry Cough Implantable Cardiac Device Does patient have a Pacemaker or an ICD?: No Airway Exam Known Difficult Airway: No Mallampati Class: 2 Mouth Opening: Normal (> 3cm) Thyromental Distance: Greater than 3 cm Neck Range of Motion: Full ROM Neck Circumference: Thick Teeth Condition: Normal Dentition Airway Comments: Possible sleep apnea, has not been evaluated ASA Classification ASA Score: ASA 3 Emergency Case?: No NPO Status NPO Status: NPO Clears >2 hours, Solids >8 hours Anesthesia Plan Resuscitation Status: Full Code Anesthesia Technique: General Anesthesia Airway Planned: Endotracheal Tube Pain Management: Surgeon and patient request nerve block Monitors Used: Standard Monitors
--- NOTE | 2025-07-05 11:12 | W.ANESNERVE ---
Nerve Block Single Injection Procedure Date and Time Date Performed: 07/05/25 Procedure Start: 10:45 Location Where Procedure Performed Procedure Location: Day Surgery Unit Reason Performed: Postoperative Analgesia Requesting Provider: Ganesh Cameron Timeout Performed Timeout Performed: Yes Monitoring Used ECG, Blood Pressure, SpO2 and See EMR for corresponding vital signs Sterility Sterility: Hand Hygiene, Surgical Cap, Surgical Mask, Sterile Gloves and Chlorhexidine Sedation Given During Procedure Sedation Given (Indicate Dose Given): Versed IV Dose:: 2mg Patient Mental Status Patient Mental Status: Sedate with meaningful communication Nerve Block 1st Nerve Block: Laterality: Left Block Type: Interscalene Ultrasound Image Saved?: Yes Needle / Catheter Used: 100mm SonoPlex II Local Anesthetic Bolus (Indicate Dose Given): Lidocaine used for local infiltration of skin, Injected in 3-5ml increments after negative blood aspiration, Bupivacaine 0.25% Dose:: 10ml and Exparel Dose:: 10ml Additives (Indicate Dose Given): None Ultrasound: Sterile probe cover and gel used Nerve Stimulator: Supplement to Ultrasound use and No twitch or parasthesia noted < 0.5 mA Paresthesia: None Procedure Tolerated: No Complications and Patient tolerated well Procedure Outcome: Successful Performed By: Milagro Davila Supervised By: Margaret Mendoza
[2025-07-05] MEDS: ceFAZolin 3,000 MG in Normal Saline 100 ML 200 MG IV (11:40)
[2025-07-05] MEDS: TRANEXAMIC ACID/SOD. CHL. 1,000 MG/100 ML BAG 600 MG IVPB (11:55)
[2025-07-05] MEDS: Bupivacaine 0.25% Pres-Free W/EPI 30 ML VIAL (12:21)
[2025-07-05] MEDS: EPINEPHrine 10 MG/10 ML ML (14:02)
--- NOTE | 2025-07-05 14:50 | W.ANESPOSTOP ---
Postoperative Evaluation Date, Time and Location Date Performed: 07/05/25 Time Performed: 14:50 Patient Location: Day Surgery Unit Vital Signs Most Recent Imported Vital Signs: Most Recent Vital Signs Temp Pulse Resp BP Pulse Ox 37.1 C 57 L 17 138/81 96 07/05/25 14:16 07/05/25 14:16 07/05/25 14:16 07/05/25 14:16 07/05/25 14:16 Pain Score Most Recent Pain Score: Most Recent Pain Score Pain Level 0 07/05/25 14:23 Assessment Mental Status: Awake (Alert & Oriented to Patient Baseline) Airway and Respiratory Function: Patent airway with normal (patient baseline) respiratory exam Cardiovascular Function: Hemodynamically Stable Hydration Status: Adequately Hydrated Nausea & Vomiting: No Nausea or Vomiting Pain: Pt. Denies Any Pain Peripheral Nerve Block: Regional nerve block not resolved at time of post operative discharge
== END 2025-07-05 15:40 | disposition home or self-care (01) ==
LOC: SUR 08:38
PROVIDERS: PCP Family Medicine; Visit Provider Student in an Organized Health Care Education/Training Program
PROC: (CPT 29827; principal; 2025-07-05 10:45)
DX: S43.432A Superior glenoid labrum lesion of left shoulder, initial encounter (principal); M75.102 Unspecified rotator cuff tear or rupture of left shoulder, not specified as traumatic; M94.212 Chondromalacia, left shoulder; M75.52 Bursitis of left shoulder; M19.012 Primary osteoarthritis, left shoulder; G89.18 Other acute postprocedural pain
CPT/HCPCS: 29828; 29823; 29826; 29824; 64415; J0131; J0665; J0666; J0690; J1100; J1805; J1885; J2250; J2371; J2405; J2704

== ENCOUNTER 2025-08-07 15:02 | Emergency (ER) | payer BC, SELFPAY ==
[2025-08-07 15:04] VITALS: BP 155/80; PULSE 73; RESP 18; TEMP 37; O2SAT 98
--- NOTE | 2025-08-07 15:15 | DI.RAD_ITS ---
Exam(s) XR SHOULDER LT COMPLETE 2+V EXAM: XR SHOULDER LT COMPLETE 2+V CLINICAL HISTORY: post-op, fall, top and lateral pain. TECHNIQUE: 2D digital imaging was performed. COMPARISON: CR XR SHOULDER LT COMPLETE 2+V from 10/04/2024 FINDINGS: Four views No evidence of fracture or dislocation. There is a small 2 mm calcific density in the soft tissues adjacent to the greater tuberosity consistent with calcific rotator cuff tendinitis. Subacromial space is not diminished. No obvious degenerative changes in the glenoid view and AC joints. Bone density normal. No osseous lesions. IMPRESSION: Calcific rotator cuff tendinitis. DATA REPOSITORY: RADIATION DOSE DELIVERED:
[2025-08-07] MEDS: Acetaminophen 500 MG TAB 1000 MG PO (15:37)
[2025-08-07] MEDS: MORPHine IR 15 MG TAB PO (15:37)
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
[2025-08-07] MEDS: MORPHine IR 15 MG TAB, 4 TABS/BTL PO (17:02)
== END 2025-08-07 17:07 | disposition home or self-care (01) ==
PROVIDERS: Emergency Provider Emergency Medicine; PCP Family Medicine
DX: S49.82XA Other specified injuries of left shoulder and upper arm, initial encounter (principal); W00.0XXA Fall on same level due to ice and snow, initial encounter; Z59.87 Material hardship due to limited financial resources, not elsewhere classified; Z59.89 Other problems related to housing and economic circumstances
CPT/HCPCS: 99283 ×2; 73030

== ENCOUNTER 2025-08-09 01:35 | Outpatient (CLI) | payer BC, SELFPAY ==
[2025-08-10 09:02] LABS: PSA, Screening 1.4 ng/mL (<=4.5)
== END 2025-08-09 01:36 | disposition home or self-care (01) ==
LOC: LBO 01:35
PROVIDERS: PCP Family Medicine; Visit Provider Nurse Practitioner Gerontology
DX: E29.1 Testicular hypofunction (principal); R79.89 Other specified abnormal findings of blood chemistry
CPT/HCPCS: 36415; 84153; 84403

== ENCOUNTER → 2025-08-10 09:13 | Outpatient (CLI) | payer BC, SELFPAY ==
--- NOTE | 2025-08-10 09:00 | DI.MRI_ITS ---
Exam(s) MR UPPER JOINT LT WO EXAM: MR UPPER JOINT LT WO CLINICAL HISTORY: pain, injury M75.102 ROTATOR CUFF TEAR LT SHOULDER. TECHNIQUE: Multiplanar multisequence MRI was performed. COMPARISON: Plain films 07 August 2025 MRI left shoulder 24 October 2024 FINDINGS: Exam is limited by motion. BONES: There is no fracture or contusion pattern. No thick pubic screw is noted in the anterior humeral head in the region of the subscapularis tendon. The screw appears have backed out nearly completely out of the humeral head approximately there is significant surrounding edema. 15 millimeters. JOINTS:The acromioclavicular joint shows minimal degenerative changes The glenohumeral joint arm shows a moderate-sized effusion. TENDONS: Supraspinatus: Thickening but no focal tear. Infraspinatus: Some thickening but no focal tear. Subscapularis: Large amount of edema. The fibers appear discontinuous. Findings suspicious for full-thickness tear. [place]: Unremarkable. Biceps and [place]: The long head of the the biceps tendon is now torn and retracted from the anchor approximately 2.5 cm. The anchor appears blunted. Short head of the biceps tendon appears intact. MUSCLES: Unremarkable. GLENOID LABRUM: Unremarkable on this noncontrast examination. SOFT TISSUES: There is edema in the anterior subcutaneous fat, anterior deltoid and anterior pectoral muscle. BURSAE: Subacromial and subdeltoid bursae shows small amount of fluid.. IMPRESSION: Full-thickness tear of the subscapularis tendon with marked amount of surrounding edema. The biceps tendon is also torn and retracted. The patient is status post subscapularis tendon repair and the orthopedic screw has nearly backed completely out of the humeral head. Surrounding edema but no evidence of fracture DATA REPOSITORY:
== END ==
LOC: DI 09:13
PROVIDERS: PCP Family Medicine; Visit Provider Student in an Organized Health Care Education/Training Program
DX: M75.102 Unspecified rotator cuff tear or rupture of left shoulder, not specified as traumatic (principal)
CPT/HCPCS: 73221

== ENCOUNTER 2025-08-16 11:17 | Day surgery (SDC) | payer BC, SELFPAY ==
--- NOTE | 2025-08-15 17:53 | ANES.PREOP_ITS ---
General Info Date of Service Date Performed: 08/16/25 Height: 5 ft 10 in Weight: 122.47 kg Body Mass Index (BMI): 38.7 Surgical Procedure: Operation Date: 08/16/25 14:15 Proposed Procedure Side Surgeon p Shoulder Revision Arthroscopic w/Limited Debridement, Open Biceps Tenodesis, Possible Rotator Cuff Repair Left Ganesh Cameron MD Meds Allergies and Home Medications Allergies Allergy/AdvReac Type Severity Reaction Status Date / Time venom-honey bee Allergy Severe Anaphylaxsi Verified 08/16/25 11:56 s clonazepam AdvReac Severe Suicidal Verified 08/16/25 11:56 Ideation lactose AdvReac Intermediate GI Upset Verified 08/16/25 11:56 Home Medication ?Medication ?Instructions ?Recorded ibuprofen 600 mg tablet 600 mg PO TID PRN pain #60 t abs 10/23/21 calcium 600 mg (as 1 tab PO DAILY #90 tabs 07/30 05/21 carbonate)-vitamin D3 20 mcg (800 unit) tablet (Caltrate with Vitamin D3) multivitamin 1 tab PO DAILY #90 tabs 07/31 04/20 ergocalciferol (vitamin D2) 1,250 50,000 unit PO QWEEK #13 caps 11/09/22 mcg (50,000 unit) capsule antiarthritic combination no.2 900 1,800 mg PO DAILY 0 04/26/23 mg tablet (glucosamine-chondroitin) syringe (disposable) 1 mL #25 ea 09/06/24 potassium chloride 20 mEq 20 meq PO TID #270 tabs 02/09/23 tablet,extended release bupropion HCl 150 mg 24 hr tablet, 150 mg PO QAM #90 t abs 11/02/24 extended release (Wellbutrin XL) bupropion HCl 300 mg 24 hr tablet, 300 mg PO QAM #90 t abs 11/02/24 extended release (Wellbutrin XL) duloxetine 40 mg capsule,delayed 40 mg PO BID #180 cap s 11/02/24 release sildenafil 100 mg tablet 100 mg PO DAILY PRN sexual 0 01/03/25 activity #90 tabs atorvastatin 20 mg tablet 20 mg PO QPM #90 tabs testosterone cypionate 200 mg/mL 175 mg (0.875 mL) IM Q2W 04/12/25 intramuscular oil hypogonadism #10 mL (Depo-Testosterone) lamotrigine 100 mg tablet 150 mg (1.5 x 100 mg) PO WILLARD LY 04/19/25 #135 tabs ferrous gluconate 324 mg (37.5 mg 324 mg PO BID #180 t abs 06/04/25 iron) tablet amlodipine 10 mg tablet 10 mg PO DAILY #90 tabs 05/30 11/21 albuterol sulfate 90 mcg/actuation 2 puff inhalation Q 6H PRN 07/10/25 aerosol inhaler shortness of breath or wheez ing #6.7 grams gabapentin 300 mg capsule 300 mg PO .noon #90 tab-caps 07/10/25 losartan 100 1 tab PO DAILY #90 tabs 06/30 09/23 mg-hydrochlorothiazide 25 mg tablet sennosides 8.6 mg-docusate sodium 1 tab-cap PO BID PRN constipation 07/10/25 50 mg capsule (Senna Plus) #60 caps trazodone 100 mg tablet See Rx Instructions PO QHS P RN 07/10/25 sleep #90 tabs needle (disp) 25 gauge 25 gauge x #25 ea 07/24/25 1 1/2 (BD Regular Bevel [place]) needle (disp) 18 G 18 gauge x 1 #10 ea 08/06/25 1/4 alprazolam 0.5 mg tablet 0.5 mg PO ONCE PRN claustrop hobia 08/09/25 #2 tabs tramadol 50 mg tablet 50 mg PO Q8H PRN pain #12 ta bs 08/09/25 tirzepatide (weight loss) 2.5 2.5 mg (0.5 mL) subcut Q WEEK #2 mL 08/13/25 mg/0.5 mL subcutaneous pen injector (Zepbound) Current Visit Medications: Current Medications Generic Name Dose Route Start Last Admin Trade Name Freq PRN Reason Stop Dose Admin Ringer's Solution 1,000 mls @ 30 mls/hr 08/16/25 06:00 IV 08/16/25 23:59 INFUSION JAGUAR Cefazolin Sodium 3,000 mg/ 100 mls @ 200 mls/hr 08/16/25 06:00 Sodium Chloride IV 08/16/25 23:59 PREOP JAGUAR Tranexamic Acid/Sodium Chloride 1,000 mg in 100 mls @ 600 mls/hr 08/16/25 06:00 IVPB 12/18/25 23:59 PREOP JAGUAR Sodium Chloride 0 ml 08/16/25 06:00 Normal Saline Flush 10 Ml Syr IV 08/16/25 23:59 PRN PRN Sodium Chloride 0 ml 08/16/25 06:00 Normal Saline 10 Ml Vial IJ 08/16/25 23:59 DIRECTED PRN Sterile Water 0 ml 08/16/25 06:00 Water,Injection,Sterile 10 Ml Vial IJ 08/16/25 23:59 DIRECTED PRN PFSH Active Problems Active Problems: Problem Status Onset Code Rupture of left proximal biceps tendon Acute S46.212A Injury of left shoulder Acute S49.92XA Arthritis of left acromioclavicular joint Acute M19.012 Bursitis of left shoulder Acute M75.52 Chondromalacia, left shoulder Acute M94.212 Tear of left glenoid labrum Acute S43.432A Sebaceous cyst Acute L72.3 Left rotator cuff tear Acute 04/25/24 M75.102 Insomnia Acute G47.00 Left shoulder pain Acute M25.512 Sleep apnea Acute G47.30 Sessile colonic polyp Acute ~11/02/23 K63.5 Constipation Acute K59.00 Type 2 diabetes mellitus Acute E11.9 Thoracic back pain Acute M54.6 Rectal bleeding Acute K62.5 Diverticulosis of colon Acute K57.30 Diverticula of intestine Acute K57.30 Low testosterone in male Acute R79.89 Erectile dysfunction Acute N52.9 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 Acute E27.8 Hyponatremia Acute E87.1 Encounter for annual physical exam Acute Z00.00 Prediabetes Acute R73.03 Urine incontinence Acute R32 Generalized anxiety disorder Acute F41.1 Cervical pain (neck) Acute M54.2 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 states benign Polyp of colon (07/29/99) Arm paresthesia, left Polyp of colon, hyperplastic 07/29/99 Palpitations 07/29/01 ETT Holter and echo=normal Carpal tunnel syndrome 12/25/13 Hyponatremia 08/13/17 Hypokalemia 08/13/17 Chest pain, unspecified 08/17/17 Pneumonia Elevated glucose (04/13/17) A1c - 6.3 04/15 Medical History Comments:: 11/02/23: pt reports he has anxiety related chest pain, last experienced in February 2023 when his mom passed Surgical History Surgical History History of discectomy History of surgical procedure Status post hemorrhoidectomy Status post tonsillectomy and adenoidectomy S/P tonsillectomy and adenoidectomy H/O surgical procedure middle ear repair S/P discectomy [facility] – [place] Tonsillectomy and adenoidectomy MIDDLE EAR REPAIR Hemorrhoidectomy Colonoscopy - MAC (10/2023) Tobacco Smoking/Tobacco Use Status: Current every day Tobacco Type: cigarettes Smoking cigarettes per day: 10 Passive smoking exposure: Yes Second hand exposure: Yes Alcohol Alcohol Intake: former Year quit: 1994 Substance Use Substance use: Never Substance use type: does not use Imaging and Studies Imaging and Studies Study information below may be from another EMR and interpreted by another provider. Please see original notes in EMR for more complete details. Stress Test Summary: 08/16/2017: Impressions: Normal study after maximal exercise. Summary: 1. Stress ECG conclusions: The stress ECG is negative. Padron treadmill score: 3. This score predicts a moderate risk of cardiac events. Recommendations: Can consider perfusion imaging if symptoms persist or clinical suspicion warrants. Anesthesia Assessment and Plan Anesthesia History Personal History: No History of Anesthesia Complications Family History: No Family History of Anesthesia Complications Exercise Tolerance Exercise Tolerance: Metabolic Equivalents>4 Pertinent Negatives Pertinent Negatives: No Symptoms of GERD, No Major Cardiovascular Symptoms or Complaints, No Major Pulmonary Symptoms or Complaints and No History of CVA/TIA Cardiac & Pulmonary Exam Cardiac Exam: Normal S1/S2 Heart Sounds Pulmonary Exam: Clear Bilateral Breath Sounds Implantable Cardiac Device Does patient have a Pacemaker or an ICD?: No Airway Exam Known Difficult Airway: No Mallampati Class: 3 Mouth Opening: Normal (> 3cm) Thyromental Distance: Greater than 3 cm Facial Hair: Full [place] Neck Range of Motion: Full ROM Neck Circumference: Thick Teeth Condition: Normal Dentition Airway Comments: CPAP compliant ASA Classification ASA Score: ASA 2 Emergency Case?: No NPO Status NPO Status: NPO Clears >2 hours, Solids >8 hours Anesthesia Plan Resuscitation Status: Full Code Anesthesia Technique: General Anesthesia Airway Planned: Endotracheal Tube Monitors Used: Standard Monitors
[2025-08-16] VITALS (21 sets, daily range): BP systolic 132–165; BP diastolic 56–90; PULSE 63–78; RESP 11–20; TEMP 36.1–37.4; O2SAT 92–99; BMI 38.7
[2025-08-16] MEDS: Lactated Ringers 1,000 ML 30 ML IV (12:25)
--- NOTE | 2025-08-16 13:00 | RT.EKG_ITS ---
APPROVED REPORT Exam: Resting ECG Reason for Exam: Preoperative EKG Patient Location: O HR:67 bpm ECG Measurements Heart Rate 67 AXIS UT 175 P 14 QRSd 104 QRS 22 QT 400 T 68 QTc 423 Conclusion Sinus rhythm...normal P axis, V-rate 60- 99 Normal Electrocardiogram
--- NOTE | 2025-08-16 13:28 | PDOC.DSDIS_ITS ---
Date of service: 08/16/25 Discharge Plan Disposition Patient Disposition: Home Condition: Stable Discharge Details Attending Provider: Ganesh Cameron Primary Care Provider: Kayleigh Guzman Home Meds and New Rx's Prescriptions: New naproxen 250 mg tablet 250 - 500 mg PO BID PRN (Reason: Moderate pain) Qty: 40 0RF oxycodone 5 mg tablet 5 - 10 mg PO Q4H PRN (Reason: Moderate to severe pain) Qty: 18 0RF Continued albuterol sulfate 90 mcg/actuation HFA aerosol inhaler 2 puff inhalation Q6H PRN (Reason: shortness of breath or wheezing) Qty: 6.7 4RF gabapentin 300 mg capsule 300 mg PO .noon Qty: 90 4RF losartan-hydrochlorothiazide 100-25 mg tablet 1 tab PO DAILY Qty: 90 4RF Senna Plus 8.6-50 mg capsule 1 tab-cap PO BID PRN (Reason: constipation) Qty: 60 0RF trazodone 100 mg tablet See Rx Instructions PO QHS PRN (Reason: sleep) Qty: 90 0RF Rx Instructions: Take 1/2 (half) - 1 tab, orally every day at bedtime PRN; ibuprofen 600 mg tablet 600 mg PO TID PRN (Reason: pain) Qty: 60 2RF glucosamine-chondroitin 900 mg tablet 1,800 mg PO DAILY testosterone cypionate [Depo-Testosterone] 200 mg/mL oil 175 mg IM Q2W Qty: 10 3RF Rx Instructions: 0.875ml intramuscular every 2 weeks tramadol 50 mg tablet 50 mg PO Q8H PRN (Reason: pain) Qty: 12 0RF alprazolam 0.5 mg tablet 0.5 mg PO ONCE PRN (Reason: claustrophobia) Qty: 2 0RF Rx Instructions: Take 1 60 minutes prior to MRI. May take an additional 1 if still anxious 30 minutes prior to MRI. bupropion HCl [Wellbutrin XL] 300 mg tablet extended release 24 hr 300 mg PO QAM MDD 450 mg Qty: 90 3RF bupropion HCl [Wellbutrin XL] 150 mg tablet extended release 24 hr 150 mg PO QAM MDD 450 mg Qty: 90 3RF Rx Instructions: * Part of a dose increase * duloxetine 40 mg capsule,delayed release(DR/EC) 40 mg PO BID Qty: 180 3RF lamotrigine 100 mg tablet 150 mg PO DAILY Qty: 135 3RF calcium carbonate-vitamin D3 [Caltrate with Vitamin D3] 600 mg-20 mcg (800 unit) tablet 1 tab PO DAILY Qty: 90 5RF Rx Instructions: 600mg/200 unit tablet multivitamin Tablet 1 tab PO DAILY Qty: 90 4RF ergocalciferol (vitamin D2) 1,250 mcg (50,000 unit) capsule 50,000 unit PO QWEEK Qty: 13 4RF (DME) syringe (disposable) 1 mL syringe See Rx Instructions .MEDSUPPLY Qty: 25 0RF Rx Instructions: use every 2 weeks; 1ml syringe; 25gx1.5 for INJ; 18gx1 to draw up medication potassium chloride 20 mEq tablet extended release 20 meq PO TID Qty: 270 5RF sildenafil 100 mg tablet 100 mg PO DAILY PRN (Reason: sexual activity) Qty: 90 3RF Rx Instructions: administer 30 minutes to 4 hours before activity; < > atorvastatin 20 mg tablet 20 mg PO QPM Qty: 90 4RF ferrous gluconate 324 mg (37.5 mg iron) tablet 324 mg PO BID Qty: 180 4RF amlodipine 10 mg tablet 10 mg PO DAILY Qty: 90 3RF (DME) BD Regular Bevel [place] 25 gauge x 1 1/2 needle See Rx Instructions .ROUTE .COMPLEX Qty: 25 0RF Dose Instruction: USE DIRECTED EVERY 2 WEEKS FOR INJECTION Rx Instructions: USE DIRECTED EVERY 2 WEEKS FOR INJECTION (DME) needle (disp) 18 G 18 gauge x 1 1/4 needle See Rx Instructions .Route Qty: 10 2RF Rx Instructions: For drawing up testosterone 1 needle every weeks Zepbound 2.5 mg/0.5 mL pen injector 2.5 mg subcut QWEEK Qty: 2 1RF Rx Instructions: for 4 weeks Discharge Instructions Additional Instructions: Surgery: Left shoulder arthroscopy with limited debridement (removal of loose suture anchor) and open biceps tenodesis 08/16/2025; Left shoulder arthroscopy with extensive debridement, biceps tenodesis, subacromial decompression, and distal clavicle excision on 07/05/25 Activity: You should gradually increase range of motion motion and use of your shoulder. You may use your shoulder for all regular activities while protecting biceps repair. Avoid any weighted elbow flexion or resisted supination for 6-8 weeks. No heavy lifting, reaching overhead, or lifting away from body for approximately 2-3 months. You may use the sling whenever you are out of the house for a few weeks. At home it is best to remove the sling and rest the arm on a pillow at your side or support the operative side with your other hand. A physical therapy prescription will be sent electronically to start in about 3 weeks. Be sure to use your CPAP machine anytime you are resting, napping, or planning to sleep until you have completely recovered from the effects of anesthesia and are no longer taking any narcotic medications. Prescriptions: Naproxen 250 mg take 1-2 every 12 hours with a meal as needed for moderate pain Oxycodone 5 mg take 1-2 every 4-6 hours as needed for severe pain You may use [id number] Tylenol (acetaminophen) as needed for mild pain. These pain medications may be taken all at once or in different combinations as needed. Also, recommend Colace (docusate) as a stool softener as surgery and pain medicine cause constipation. You may try [id number] diphenhydramine (Benadryl) 25-50 mg nightly as a sleep aid Dressings: Remove shoulder bandage after 3 days. Leave the sticky Steri-Strips in place until they fall off or remove them after you shower. Cover the incisions with Band-Aids or leave them open to air. The biceps bandage (inside upper arm) is glued on separately. You may leave this one on a few days longer if it is difficult to remove. There is also glue underneath this bandage that can be left in place until it peels off. You may shower after 5 days. Follow-up: 10-[address] Cameron You may take off the leg compression stockings this evening at home. You may also leave them on a few days longer if you have a history of leg swelling or edema. Let us know right away if you develop any redness, drainage, fevers, chest pain, or trouble breathing. Do not drink alcohol or drive for at least 24 hours after anesthesia. Please call the office during business hours with any questions or concerns. Stand Alone Forms: Anesthesia Discharge Inst., Anes.Nerve Block Instructions, Apolonia Hartmann (DSU), Portal Information Referrals: Ganesh Cameron MD [ [facility] STAFF PHYSICIAN, Orthopaedic Surgical] - 08/29/25 8:30 am Discharge Orders Discharge Orders: Discharge Order (Routine); Ordered 08/16/25 Ordered By: Roni Hogue DS: Diagnosis Discharge Diagnosis (1) Rupture of left proximal biceps tendon: Status: Acute
[2025-08-16] MEDS: ceFAZolin 3,000 MG in Normal Saline 100 ML 200 MG IV (14:01)
[2025-08-16] MEDS: TRANEXAMIC ACID/SOD. CHL. 1,000 MG/100 ML BAG 600 MG IVPB (14:17)
--- NOTE | 2025-08-16 14:33 | W.ANESNERVE ---
Nerve Block Single Injection Procedure Date and Time Date Performed: 08/16/25 Procedure Start: 13:35 Location Where Procedure Performed Procedure Location: Day Surgery Unit Reason Performed: Postoperative Analgesia Requesting Provider: Ganesh Cameron Timeout Performed Timeout Performed: Yes Monitoring Used ECG, Blood Pressure, SpO2 and See EMR for corresponding vital signs Sterility Sterility: Hand Hygiene, Surgical Cap, Surgical Mask, Sterile Gloves and Chlorhexidine Sedation Given During Procedure Sedation Given (Indicate Dose Given): Versed IV Dose:: 2mg Patient Mental Status Patient Mental Status: Awake Nerve Block 1st Nerve Block: Laterality: Left Block Type: Interscalene Ultrasound Image Saved?: Yes Needle / Catheter Used: 100mm SonoPlex II Local Anesthetic Bolus (Indicate Dose Given): Lidocaine used for local infiltration of skin, Injected in 3-5ml increments after negative blood aspiration, Bupivacaine 0.5% Dose:: 10mL and Exparel Dose:: 10mL Additives (Indicate Dose Given): None Ultrasound: Sterile probe cover and gel used Nerve Stimulator: Supplement to Ultrasound use and No twitch or parasthesia noted < 0.5 mA Paresthesia: None Procedure Tolerated: Patient tolerated well Procedure Outcome: Successful Procedure Comment: Patient had twitch response on medial side of bundle, unable to redirect needle to medial side of bundle for local administration. Placed needle over top of plexus and administered in one space. Discussed technical difficulty of block with patient and potential for partial setup. Patient verbalized understand. Performed By: Mihaela Lester Other (not listed above): First attempt by ENID Cabello with Mihaela Lester CRNA supervision.
[2025-08-16] MEDS: Bupivacaine 0.25% Pres-Free W/EPI 30 ML VIAL (14:40)
[2025-08-16] MEDS: EPINEPHrine 10 MG/10 ML ML (15:17)
--- NOTE | 2025-08-16 15:34 | ROE_ITS ---
Operative Note Operative Note PRE-OP DIAGNOSIS: Left: 1. Traumatic failure of arthroscopic biceps tenodesis POST-OP DIAGNOSIS: same PROCEDURE: Left: 1. Arthroscopic limited debridement, CPT# 71625. This involved joint arthroscopy, confirming the failed arthroscopic biceps tenodesis anchor, and using the mechanical shaver to remove some loose bone and cartilage edges around the site and debriding and removing permanent suture material as well. 2. Revision arthroscopic to open biceps tenodesis, CPT# 97623. This involved reattaching the long head of the biceps tendon to the proximal humerus in the sub-pectoral area of the bicipital groove at the correct tension. 3. Removal of hardware, deep implant, CPT #09123: Loose suture anchor from proximal humerus SURGEON: Ganesh Cameron [facility] [employer] TEACHER: Roni Hogue ANESTHESIA TYPE: Local By Surgeon, General LMA/ETT and Primary Nerve Block Refer to Anesthesia Record ESTIMATED BLOOD LOSS: 10 PATHOLOGY: none sent COMPLICATIONS: None Patient was transported to: PACU Patient's condition: stable Implants: Arthrex: Proximal biceps tenodesis button Indications: The patient was diagnosed with the above conditions and appropriately indicated for surgical intervention. Please see complete medical record for details. Findings: Glenohumeral joint: About two thirds pulled back and loose arthroscopic biceps tenodesis SwiveLock suture anchor. [place] remained intact, intact to eyelet, and suture strands still attached to biceps tendon, which was retracted down the bicipital groove about 2 cm. Intact subscapularis. No new rotator cuff, cartilage, or labral tearing. No debris in the axillary recess. Procedure Description: In the operating room, general anesthesia was induced. Bilateral shoulders were examined. The patient was positioned in the beachchair position. All bony prominences were well-padded. Preoperative antibiotics were administered. The shoulder was prepped and draped in the usual sterile fashion. The correct patient, procedure, and side of the procedure were all verified prior to incision. The prior posterior and anterior glenohumeral portals were preinjected with 0.25% bupivacaine containing epinephrine. A moderately sized subpectoral bicep incision was also preinjected. The glenohumeral joint was reaccessed, suture anchor anteriorly carefully localized and grasped with a pituitary rongeur. It was able to be oriented in line and removed in entirety with the entire screw knotless suture and eyelet all removed through the anterior portal. The sutures attached to the biceps in the bicipital groove remain behind. They were grasped with a pituitary rongeur and the biceps was able to be withdrawn back into the glenohumeral joint, but there was no reasonable way especially with the large soft tissue envelope to use the limited suture and tendon available to redo the biceps tenodesis arthroscopically. As the tendon was mobile, decision was made as anticipated to convert the arthroscopic failed tenodesis to open tenodesis. Mechanical shaver was brought anteriorly used to remove residual suture material from in the joint and the tendon for ease of later withdrawn out the open incision. Suture anchor defect anteriorly was then abraded with a shaver and some loose cartilage and bone along the edges carefully removed. There was no additional rotator cuff tearing or debris that need to be removed. The shoulder was drained of arthroscopic fluid. The portals were copiously irrigated. A moderately sized longitudinal incision centered at the inferior margin of the pectoralis major tendon localized over the anterior biceps was used for the open tenodesis. Blunt and sharp dissection were used to expose the tendon in the bicipital groove. The groove was significantly deep and larger retractors had to be used compared to normal due to the patient arm size morbid obesity. The tendon was brought out of the wound and kept off the skin on top of a blue towel. The correct location for sub-pectoral fixation was localized, prepped with a rasp, and then drilled with a 3.2 mm drill pin in a unicortical fashion, the pin due to challenging exposure and depth did not seem to enter the center of the proximal humerus, and a second drill hole more distally and a more easily accessible location it was not quite as far up under the pectoralis major tendon was used with more normal approach to the central part of the proximal humerus. Using a fiber loop suture the tendon was prepped from the musculotendinous junction a few centimeters proximal. The excess tendon was amputated. The free suture ends were then passed through the unicortical button implant. The drill pin was removed and the implant was placed into the humeral intramedullary canal. The button was flipped and the sutures were tensioned bringing the tendon down to bone. Tension and fixation were then tested and found to be appropriate. The suture tails were brought on either side of the tendon and then tied compressing tendon to bone. The wound was copiously irrigated with normal saline. Subcutaneous tissue was closed using 3-0 Monocryl in a buried interrupted fashion. Skin was closed using 3-0 Monocryl in a buried subcuticular running fashion. Skin glue was applied over the incision. Mastisol was applied about the incision. The incision was covered with Telfa, gauze, and covered with a Tegaderm dressing. The anterior posterior shoulder portals were closed using 3-0 Monocryl in a buried fashion and then covered with Mastisol, Steri-Strips, Xeroform, dry gauze, and ABDs. The dressings were covered and secured with Medipore tape. The operative extremity was placed into a sling for immobilization. The patient awoke from anesthesia without complication and was transferred to the recovery room in a stable condition. Date of Procedure: 08/16/25
[2025-08-16] MEDS: HYDROmorphone 2 MG/ML SYR IVP (15:57)
--- NOTE | 2025-08-16 16:03 | W.ANESPOSTOP ---
Postoperative Evaluation Date, Time and Location Date Performed: 08/16/25 Time Performed: 15:55 Patient Location: PACU Vital Signs Most Recent Imported Vital Signs: Most Recent Vital Signs Temp Pulse Resp BP Pulse Ox 37.0 C 66 16 155/70 H 95 08/16/25 15:38 08/16/25 15:40 08/16/25 15:40 08/16/25 15:40 08/16/25 15:40 Pain Score Most Recent Pain Score: Most Recent Pain Score Pain Level 6 08/16/25 15:51 Assessment Mental Status: Awake (Alert & Oriented to Patient Baseline) Airway and Respiratory Function: Patent airway with normal (patient baseline) respiratory exam Cardiovascular Function: Hemodynamically Stable Hydration Status: Adequately Hydrated Nausea & Vomiting: No Nausea or Vomiting Pain: Pain is Moderate or Severe Postoperative Pain Management: Pain being addressed with medication Peripheral Nerve Block: Regional nerve block not resolved at time of post operative discharge
[2025-08-16] MEDS: oxyCODONE 5 MG TAB PO (17:05)
== END 2025-08-16 17:46 | disposition home or self-care (01) ==
PROVIDERS: PCP Family Medicine; Visit Provider Student in an Organized Health Care Education/Training Program
PROC: (CPT 29827; principal; 2025-08-16 14:00)
DX: S46.212A Strain of muscle, fascia and tendon of other parts of biceps, left arm, initial encounter (principal); X58.XXXA Exposure to other specified factors, initial encounter; G89.18 Other acute postprocedural pain
CPT/HCPCS: 29822; 23430; 20680; 64415; 93005; 93010; J0131; J0665; J0666; J0690; J1100; J1171; J1885; J2003; J2250; J2371; J2405; J2704; J3010